=== PATIENT | female | born 1985 | race Caucasian/White ===

== ENCOUNTER → 2017-03-01 | Outpatient (CLI) | payer OTHER ==
--- NOTE | 2017-03-01 11:49 | XR ---
EXAMINATION TYPE: XR chest 2V DATE OF EXAM: 03/01/2017 COMPARISON: 05/15/2016 INDICATION: Pneumonia, cough TECHNIQUE: Frontal and lateral views of the chest are obtained. FINDINGS: The heart size is normal. The pulmonary vasculature is normal. The lungs are clear. IMPRESSION: 1. No acute pulmonary process.
[2017-03-05 13:35] LABS: Alternaria alternata IgE <0.35 kU/L (<0.35); Asperg. fumagatus IgE <0.35 kU/L (<0.35); Asperg. fumagatus IgE Class CLASS 0; Birch(Com.Silvr) IgE Class CLASS 0; Cat Epith & Dander IgE <0.35 kU/L (<0.35); Cat Epith & Dander IgE Class CLASS 0; Clad herbarum IgE <0.35 kU/L (<0.35); Clad herbarum IgE Class CLASS 0; Common Ragweed IgE Class CLASS 0; Dermato. Pteronyssinus Class CLASS 0; Dermato. Pteronyssinus IgE <0.35 kU/L (<0.35); Dermato. farinae IgE <0.35 kU/L (<0.35); Dermato. farinae IgE Class CLASS 0; IgE (Allergen) 2.5 IU/mL (<114.0); Maple (Box Elder) IgE <0.35 kU/L (<0.35); Maple (Box Elder) IgE Class CLASS 0; Mountain Cedar IgE <0.35 kU/L (<0.35); Mountain Cedar IgE Class CLASS 0; Mouse Urine IgE Class CLASS 0; Mouse Urine Proteins,IgE <0.35 kU/L (<0.35); Mulberry IgE Class CLASS 0; Nettle IgE <0.35 kU/L (<0.35); Nettle IgE Class CLASS 0; Oak IgE <0.35 kU/L (<0.35); Penicillium notatum IgE Class CLASS 0; Rough Marshelder IgE <0.35 kU/L (<0.35); Rough Marshelder IgE Class CLASS 0; Timothy Grass IgE <0.35 kU/L (<0.35); Timothy Grass IgE Class CLASS 0; White Ash IgE Class CLASS 0
== END ==
LOC: RADXRMAIN 11:31
PROVIDERS: ATTEND Internal Medicine Sleep Medicine
DX: J44.9 Chronic obstructive pulmonary disease, unspecified (principal); B44.81 Allergic bronchopulmonary aspergillosis
CPT/HCPCS: 36415; 71020; 82785; 86001; 86003; 86606; 86609

== ENCOUNTER 2017-07-05 09:24 | Emergency (ER) | payer OTHER ==
[2017-07-05] MEDS ORDERED: IBUPROFEN 600 MG TAB PO STA (09:52)
--- NOTE | 2017-07-05 09:56 | ED ---
General Adult HPI - General Chief complaint: Upper Respiratory Infection Stated complaint: Fever, nauseated Time Seen by Provider: 07/05/17 09:34 Source: patient, RN notes reviewed Mode of arrival: ambulatory Limitations: no limitations - History of Present Illness Initial comments: 31 yo female presents to the ER with cc of cough cold like symptoms. She states she's been sick since yesterday. She denies a high fever. She states she's had a lot of congestion and drainage. She states that she was concerned because she just is not feeling much better so she thought that she should be evaluated. She denies any vomiting with this. Patient denies any recent shortness of breath, chest pain, back pain, abdominal pain, vomiting, numbness or tingling, dysuria or hematuria, constipation or diarrhea, headaches or visual changes, or any other current symptoms. - Related Data Home Medications Medication Instructions Recorded Confirmed Acetaminophen [Tylenol] 650 mg PO Q6H PRN 07/05/17 07/05/17 Albuterol Inhaler [Ventolin Hfa 1 - 2 puff INHALATION RT-QID PRN 07/05/17 Inhaler] Azithromycin [Zithromax Z-pack] 0 mg PO DIRECTED 07/05/17 07/05/17 Bisoprolol-Hctz 5-6.25 mg [Ziac 1 tab PO DAILY 07/05/17 07/05/17 5-6.25] Montelukast [Singulair] 10 mg PO HS 07/05/17 07/05/17 Allergies Allergy/AdvReac Type Severity Reaction Status Date / Time No Known Allergies Allergy Verified 07/05/17 10:00 Review of Systems ROS Statement: Those systems with pertinent positive or pertinent negative responses have been documented in the HPI. ROS Other: All systems not noted in ROS Statement are negative. Past Medical History Past Medical History: No Reported History, Hypertension, Supraventricular Tachycardia (SVT) Additional Past Medical History / Comment(s): tachycardia, svt History of Any Multi-Drug Resistant Organisms: None Reported Past Surgical History: Section Past Anesthesia/Blood Transfusion Reactions: No Reported Reaction Past Psychological History: No Psychological Hx Reported Smoking Status: Former smoker Past Alcohol Use History: Occasional Past Drug Use History: None Reported - Past Family History Mother Family Medical History: No Reported History General Exam - General Exam Comments Initial Comments: General exam: Alert, active, comfortable in no apparent distress Head: Normocephalic Eyes: Normal reaction of pupils, equal size, normal range of extraocular motion Ears: normal external ear canals, pink tympanic membranes with normal cone of light Nose: clear with pink turbinates Throat: no erythema or exudates with normal sized tonsils Neck: no masses, no nuchal rigidity Chest: no chest wall deformity Lungs: equal air entry with no crackles or wheeze CVS: S1 and S2 normal with no audible mumurs, regular rhythm Abdomen: no hepatosplenomegaly, normal bowel sounds, no guarding or rigidity Spine: no scoliosis or deformity Skin: no rashes Neurological: No focal deficits, tone is normal in all 4 extremities Limitations: no limitations Course Vital Signs 07/05/17 07/05/17 07/05/17 09:28 09:50 10:04 Temperature 97.4 F L 98.8 F Pulse Rate 114 H Respiratory 18 20 Rate Blood Pressure 143/77 O2 Sat by Pulse 100 Oximetry Medical Decision Making - Medical Decision Making 31-year-old female presents to the emergency department with a chief complaint of cough cold like symptoms. At this time the patient is positive for influenza A. At this time we we'll give her prescription for Tamiflu. We discussed Motrin and Tylenol. We discussed return parameters and follow-up and all questions. Patient stated that she understood and she is agreement plan. All cushions have been answered. She'll be discharged. - Lab Data Lab Results 07/05/17 07/05/17 Range/Units 09:55 09:55 Influenza Type A RNA Detected H (Not Detectd) Influenza Type B (PCR) Not Detected (Not Detectd) Group A Strep Rapid Negative (Negative) - Radiology Data Radiology results: report reviewed, image reviewed Disposition Clinical Impression: Influenza A Disposition: HOME SELF-CARE Condition: Stable Instructions: Influenza in Children (ED) Additional Instructions: Please use medication as discussed. Please follow up with family doctor if symptoms have not improved over the next two days. Please return to the emergency room if your symptoms increase or worsen or for any other concerns. Referrals: Tomy Encinas MD [Primary Care Provider] - 1-2 days Time of Disposition: 10:38
[2017-07-05 10:04] VITALS: RESP 20
--- NOTE | 2017-07-05 10:35 | XR ---
EXAMINATION TYPE: XR chest 2V DATE OF EXAM: 07/05/2017 COMPARISON: 06/16/2017 HISTORY: Chest pain TECHNIQUE: Frontal and lateral views of the chest are obtained. FINDINGS: There is no focal air space opacity. No evidence for pneumothorax. No pleural effusion. The cardiac silhouette size is within normal limits. The osseous structures are grossly intact. IMPRESSION: 1. No acute cardiopulmonary process.
[2017-07-05 10:46] VITALS: BP 126/79; PULSE 102; TEMP 98.9
== END 2017-07-05 10:46 | disposition home or self-care (01) ==
LOC: EC 09:24
DX: J10.1 Influenza due to other identified influenza virus with other respiratory manifestations (principal); I10 Essential (primary) hypertension; Z87.891 Personal history of nicotine dependence; Z79.899 Other long term (current) drug therapy
CPT/HCPCS: 71046; 87081; 87430; 87502; 99283

== ENCOUNTER 2017-09-01 14:50 | Emergency (ER) | payer OTHER ==
[2017-09-01] MEDS ORDERED: Acetaminophen-Codeine 300-30mg TAB PO STA (14:59)
--- NOTE | 2017-09-01 15:01 | ED ---
Lower Extremity Injury HPI - General Stated Complaint: left ankle injury Time Seen by Provider: 09/01/17 14:54 Source: patient, RN notes reviewed Mode of arrival: wheelchair Limitations: no limitations - History of Present Illness Initial Comments: 32-year-old female presents emergency Department chief complaint of left ankle injury. Patient states that she was getting off a trampoline states her ankle rolled she felt a snap. Patient has pain in her tib-fib, left ankle region. Patient said no prior fractures. Denies any paresthesias. Patient states that she has not taken any medications prior arrival. - Related Data Home Medications Medication Instructions Recorded Confirmed Bisoprolol-Hctz 5-6.25 mg [Ziac 1 tab PO DAILY 07/05/17 09/01/17 5-6.25] Montelukast [Singulair] 10 mg PO HS 07/05/17 09/01/17 Previous Rx's Medication Instructions Recorded Acetaminophen-Codeine 300-30mg 1 tab PO Q4H PRN #20 tablet 09/01/17 [Tylenol #3] Ibuprofen [Motrin] 600 mg PO Q8HR PRN #30 tab 09/01/17 Allergies Allergy/AdvReac Type Severity Reaction Status Date / Time No Known Allergies Allergy Verified 09/01/17 15:14 Review of Systems ROS Statement: Those systems with pertinent positive or pertinent negative responses have been documented in the HPI. ROS Other: All systems not noted in ROS Statement are negative. Past Medical History Past Medical History: No Reported History, Hypertension, Supraventricular Tachycardia (SVT) Additional Past Medical History / Comment(s): tachycardia, svt History of Any Multi-Drug Resistant Organisms: None Reported Past Surgical History: Section Past Anesthesia/Blood Transfusion Reactions: No Reported Reaction Past Psychological History: No Psychological Hx Reported Smoking Status: Former smoker Past Alcohol Use History: Occasional Past Drug Use History: None Reported - Past Family History Mother Family Medical History: No Reported History General Exam Limitations: no limitations General appearance: alert, in no apparent distress Head exam: Present: atraumatic, normocephalic, normal inspection Respiratory exam: Present: normal lung sounds bilaterally. Absent: respiratory distress, wheezes, rales, rhonchi, stridor Cardiovascular Exam: Present: regular rate, normal rhythm, normal heart sounds. Absent: systolic murmur, diastolic murmur, rubs, gallop, clicks Extremities exam: Present: other (Left ankle there is obvious deformity, swelling noted greatest to lateral malleolus., There is mild tenderness the proximal tib-fib region. Pulses equal bilaterally no discoloration) Neurological exam: Present: reflexes normal. Absent: motor sensory deficit Skin exam: Present: warm, dry, intact, normal color. Absent: rash Course Vital Signs 09/01/17 14:59 Temperature 98.3 F Pulse Rate 107 H Respiratory 18 Rate Blood Pressure 159/112 O2 Sat by Pulse 97 Oximetry - Reevaluation(s) Reevaluation #1: 09/01/17 15:00 Patient was offered oral versus IM pain medication. Patient opted for Tylenol codeine she states that she get sick from other meds. Procedures - Orthopedic Splinting/Casting Injury #1 Side: left Lower Extremity Injury Location: short leg, ankle Lower Extremity Immobilizer: posterior splint, synthetic pre-padded splint Other Orthopedic Equipment: crutches Medical Decision Making - Medical Decision Making 32-year-old female presents for chief complaint left ankle injury. There is no acute fracture dislocation. Patient has a left ankle sprain concern for ligament disruption. Patient was splinted will follow-up with orthopedics and return parameters were discussed. Disposition Clinical Impression: Left ankle sprain Disposition: HOME SELF-CARE Condition: Stable Instructions: Ankle Sprain (ED) Additional Instructions: Please return to the Emergency Department if symptoms worsen or any other concerns. Prescriptions: Acetaminophen-Codeine 300-30mg [Tylenol #3] 1 tab PO Q4H PRN #20 tablet PRN Reason: pain Ibuprofen [Motrin] 600 mg PO Q8HR PRN #30 tab PRN Reason: Pain Referrals: Tomy Encinas MD [Primary Care Provider] - 1-2 days Tayo Groves MD [STAFF PHYSICIAN] - 1-2 days Time of Disposition: 15:35
[2017-09-01 15:03] VITALS: BP 159/112; PULSE 107; RESP 18; TEMP 98.3
--- NOTE | 2017-09-01 15:12 | XR ---
EXAMINATION TYPE: XR ankle complete LT DATE OF EXAM: 09/01/2017 COMPARISON: 08/24/2015 HISTORY: Pain TECHNIQUE: 3 views FINDINGS: There is soft tissue swelling over the lateral malleolus. Ankle mortise is anatomic. I see no fracture. Joint spaces are fairly normal. IMPRESSION: Soft tissue swelling. No fracture seen.
--- NOTE | 2017-09-01 15:14 | XR ---
EXAMINATION TYPE: XR tibia fibula LT DATE OF EXAM: 09/01/2017 COMPARISON: NONE HISTORY: Pain TECHNIQUE: 2 views FINDINGS: I see no fracture nor dislocation. Tibia and fibula appear intact. There is soft tissue swe lling over the distal fibula. IMPRESSION: Soft tissue swelling. No fracture seen.
== END 2017-09-01 15:47 | disposition home or self-care (01) ==
LOC: EC 14:50
DX: S93.402A Sprain of unspecified ligament of left ankle, initial encounter (principal); I10 Essential (primary) hypertension; I47.1 Supraventricular tachycardia; Z87.891 Personal history of nicotine dependence; Z79.899 Other long term (current) drug therapy; X50.9XXA Other and unspecified overexertion or strenuous movements or postures, initial encounter; Y93.44 Activity, trampolining
CPT/HCPCS: 29515; 99283

== ENCOUNTER → 2017-09-17 | Outpatient (CLI) | payer OTHER ==
--- NOTE | 2017-09-17 15:58 | US ---
EXAMINATION TYPE: US venous doppler duplex LE LT DATE OF EXAM: 09/17/2017 3:45 PM COMPARISON: NONE CLINICAL HISTORY: M25.572 PAIN IN LT ANKLE AND JOINT LT FOOT. Left ankle swelling-- Patient fell on a nkle while on trampoline. On aspirin. SIDE PERFORMED: Left TECHNIQUE: The lower extremity deep venous system is examined utilizing real time linear array sonog audrey with graded compression, doppler sonography and color-flow sonography. VESSELS IMAGED: External Iliac Vein (EIV) Common Femoral Vein Deep Femoral Vein Greater Saphenous Vein * Femoral Vein Popliteal Vein Small Saphenous Vein * Proximal Calf Veins (* superficial vessels) Left Leg: Negative for DVT Grayscale, color doppler, spectral doppler imaging performed of the deep veins of the left lower extr emity. There is normal flow, compressibility, vascular waveforms. IMPRESSION: No ultrasound evidence for acute DVT in the left lower extremity.
== END | disposition home or self-care (01) ==
LOC: RADUSWWP 15:03
PROVIDERS: ATTEND Orthopaedic Surgery
DX: S93.402D Sprain of unspecified ligament of left ankle, subsequent encounter (principal)

== ENCOUNTER → 2017-12-12 | Outpatient (CLI) | payer OTHER ==
--- NOTE | 2017-12-12 16:52 | CT ---
EXAMINATION TYPE: CT ankle LT wo con DATE OF EXAM: 12/12/2017 HISTORY: Left sided ankle injury 3 months ago. pain since COMPARISON: NONE CT DLP: 240 mGycm. Automated Exposure Control for Dose Reduction was Utilized. TECHNIQUE: CT scan of the left knee without intravenous contrast is performed. FINDINGS: The ankle mortise is maintained. There is no evidence of acute fracture or malalignment of the left a nkle. Syndesmosis is unremarkable. Very small bone island is present within the cuboid. No suspicious osseous lesions are in normal osseous mineralization. Evaluation of the ligaments and tendons as well as soft tissues are limited on CT, however there does appear to be prominent soft tissue density in the region of the deltoid ligament and slight attenuat ion of the tibialis posterior and flexor digitorum longus. Extensor tendons appear unremarkable. Ther e is a small tibiotalar joint effusion. Evaluation of the anterior talofibular ligament and posterior talofibular ligament are significantly limited on CT. IMPRESSION: 1. No evidence of fracture or malalignment of the left ankle. 2. Although soft tissue components are limited on CT there appears to be prominent soft tissue within the deltoid ligament concerning for underlying tear and attenuation of the tibialis posterior as wel l as flexor digitorum longus tendons suggesting either partial tear and/or tenosynovitis. Further zamzam luation with MRI is recommended. 3. Small tibiotalar joint effusion, nonspecific.
== END ==
LOC: RADCTMAIN 15:31
PROVIDERS: ATTEND Orthopaedic Surgery
DX: S93.402D Sprain of unspecified ligament of left ankle, subsequent encounter (principal); S92.022D Displaced fracture of anterior process of left calcaneus, subsequent encounter for fracture with routine healing; X58.XXXD Exposure to other specified factors, subsequent encounter; M25.472 Effusion, left ankle

== ENCOUNTER 2018-01-05 00:33 | Inpatient (IN) | payer OTHER ==
[2018-01-05 00:48] LABS: Basophils # (A) 0.1 k/uL (0-0.2); Basophils % (A) 1 %; Eosinophils # (A) 0.1 k/uL (0-0.7); Eosinophils % (A) 1 %; HCT 38.6 % (34.0-46.0); HGB 12.5 gm/dL (11.4-16.0); Hypochromasia Slight; Lymphocytes # (A) 2.2 k/uL (1.0-4.8); Lymphocytes % (A) 26 %; MCH 25.9 pg (25.0-35.0); MCHC 32.3 g/dL (31.0-37.0); MCV 80.1 fL (80.0-100.0); Mean Platelet Volume 7.5; Monocytes # (A) 0.5 k/uL (0-1.0); Monocytes % (A) 6 %; Neutrophils # (A) 5.5 k/uL (1.3-7.7); Neutrophils % (A) 65 %; Platelet Count 279 k/uL (150-450); RBC 4.82 m/uL (3.80-5.40); RDW 14.3 % (11.5-15.5); WBC 8.4 k/uL (3.8-10.6)
[2018-01-05 00:55] LABS: Partial Thromboplastin Time 22.7 sec (22.0-30.0); Prothrombin Time 10.1 sec (9.0-12.0)
[2018-01-05 00:56] LABS: Glucose,Whole Blood 102 mg/dL (75-99)
[2018-01-05 00:57] LABS: ALT 26 U/L (9-52); AST 19 U/L (14-36); Albumin 4.4 g/dL (3.5-5.0); Alcohol 109 mg/dL; Alkaline Phosphatase 44 U/L (38-126); Amylase 62 U/L (30-110); Anion Gap 14 mmol/L; Blood Urea Nitrogen 9 mg/dL (7-17); Calcium 8.4 mg/dL (8.4-10.2); Carbon Dioxide 19 mmol/L (22-30); Chloride 109 mmol/L (98-107); Glucose 105 mg/dL (74-99); Lipase 116 U/L (23-300); Potassium 3.7 mmol/L (3.5-5.1); Sodium 142 mmol/L (137-145); Total Bilirubin 0.2 mg/dL (0.2-1.3); Total Protein 6.7 g/dL (6.3-8.2)
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
[2018-01-05 01:05] LABS: Creatine Kinase 93 U/L (30-135)
[2018-01-05 01:14] LABS: Appearance,Urine Clear (Clear); Bilirubin,Urine Negative (Negative); Blood,Urine Negative (Negative); Color,Urine Colorless; Glucose,Urine (UA) Negative (Negative); Ketones,Urine Negative (Negative); Leukocyte Esterase,Urine Negative (Negative); Nitrite,Urine Negative (Negative); PH, Urine 5.5 (5.0-8.0); Protein,Urine Negative (Negative); Specific Gravity,Urine 1.003 (1.001-1.035); Urobilinogen,Urine <2.0 mg/dL (<2.0)
[2018-01-05 01:17] LABS: Creatine Kinase MB 0.6 ng/mL (0.0-2.4); Troponin I <0.012 ng/mL (0.000-0.034)
[2018-01-05 01:24] LABS: Amphetamine Screen,Urine Not Detected (NotDetected); Barbiturate Screen,Urine Not Detected (NotDetected); Benzodiazepines Screen,Urine Not Detected (NotDetected); Cocaine Screen,Urine Not Detected (NotDetected); Methadone Screen, Urine Not Detected (NotDetected); Opiate Screen,Urine Not Detected (NotDetected); Oxycodone Screen, Urine Not Detected (NotDetected); Phencyclidine Screen,Urine Not Detected (NotDetected); Tricyclic Antidepressant,Urine Not Detected (NotDetected); Urn Cannabinoid Scrn Not Detected (NotDetected)
--- NOTE | 2018-01-05 01:59 | XR ---
EXAMINATION TYPE: XR elbow complete LT DATE OF EXAM: 01/05/2018 COMPARISON: NONE HISTORY: Elbow pain TECHNIQUE: 3 views FINDINGS: I see no fracture nor dislocation. Joint spaces are normal. There is no sign of elbow joint effusion. IMPRESSION: Negative left elbow exam.
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
[2018-01-05] MEDS ORDERED: MORPHINE SULFATE 2 MG/ML SYRINGE IVP STA ×2 (02:39→04:23)
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
[2018-01-05] MEDS ORDERED: ceFAZolin IN SWFI 2 GM/20 ML SYRINGE IVP STA (03:24)
[2018-01-05] MEDS ORDERED: TETANUS-DIPHTHERIA TOX (PF) 0.5 ML VIAL IM ONE (03:25)
[2018-01-05] MEDS ORDERED: SODIUM CHLORIDE 0.9% 1,000 ML IV ONE ×3 (04:23→13:47)
[2018-01-05] MEDS ORDERED: MORPHINE SULFATE 2 MG/ML SYRINGE IVP PRN (04:23)
[2018-01-05] MEDS ORDERED: ONDANSETRON 4 MG/2 ML VIAL IVP STA (04:28)
[2018-01-05] MEDS ORDERED: LORazepam 2 MG/ML INJ IV STA (04:48)
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
[2018-01-05] MEDS: LORazepam 2 MG/ML INJ IV PRN ×2 (09:57→17:13)
[2018-01-05] MEDS ORDERED: ceFAZolin 2 GM in SODIUM CHLORIDE 0.9% 100 ML IVPB ONE (10:58)
[2018-01-05] MEDS ORDERED: ceFAZolin IN SWFI 2 GM/20 ML SYRINGE IVP ONE (11:15)
[2018-01-05] MEDS ORDERED: LACTATED RINGERS 1,000 ML IV ONE ×2 (11:48)
[2018-01-05] MEDS ORDERED: ceFAZolin 1,000 MG in DEXTROSE/WATER 1 50ML.BAG IVPB SCH (12:00)
[2018-01-05] MEDS ORDERED: fentaNYL (PF) 50 MCG/ML 2 ML AMP ONE (12:41)
[2018-01-05] MEDS ORDERED: LIDOCAINE 1% INJ 10MG/ML (20 ML MDV) ONE (12:41)
[2018-01-05] MEDS ORDERED: PROPOFOL 10 MG/ML 20 ML VIAL IV ONE (12:41)
[2018-01-05] MEDS ORDERED: MIDAZOLAM 2 MG/2 ML VIAL ONE (12:41)
[2018-01-05] MEDS ORDERED: SODIUM CHLORIDE 0.9% 50 ML with ceFAZolin 2,000 MG IV ONE ×2 (12:50)
[2018-01-05] MEDS ORDERED: ceFAZolin 3,000 MG in SODIUM CHLORIDE 0.9% IRRIGATIO 3,000 ML IRRIGATION ONE (13:08)
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
[2018-01-05] MEDS ORDERED: HYDROcodone/APAP 5-325MG 1 EACH TAB PO PRN (14:03)
[2018-01-05] MEDS ORDERED: diphenhydrAMINE 25 MG CAP PO PRN (14:03)
[2018-01-05] MEDS ORDERED: MORPHINE SULFATE 2 MG/ML SYRINGE IV PRN ×3 (14:03)
[2018-01-05] MEDS ORDERED: SENNOSIDES-DOCUSATE SODIUM 1 EACH TAB PO PRN (14:03)
[2018-01-05] MEDS: MORPHINE SULFATE 2 MG/ML SYRINGE IV PRN (15:34)
[2018-01-05] MEDS ORDERED: ceFAZolin IN SWFI 2 GM/20 ML SYRINGE IVP SCH (16:00)
[2018-01-05] MEDS: ONDANSETRON 4 MG/2 ML VIAL IVP PRN ×2 (16:20→22:41)
[2018-01-05] MEDS: ceFAZolin IN SWFI 2 GM/20 ML SYRINGE IVP SCH ×2 (16:43→22:36)
[2018-01-05] MEDS: HYDROcodone/APAP 5-325MG 1 EACH TAB PO PRN (22:29)
[2018-01-06] MEDS: MORPHINE SULFATE 2 MG/ML SYRINGE IV PRN ×2 (02:32→05:38)
[2018-01-06] MEDS: HYDROcodone/APAP 5-325MG 1 EACH TAB PO PRN ×3 (05:38→22:07)
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
[2018-01-06] MEDS: ONDANSETRON 4 MG/2 ML VIAL IVP PRN ×2 (09:27→20:38)
[2018-01-06] MEDS ORDERED: IV FLUID CONTINUATION 1,000 ML IV ONE (13:48)
[2018-01-06] MEDS ORDERED: ONDANSETRON 4 MG/2 ML VIAL IVP ONE (14:33)
[2018-01-06] MEDS ORDERED: DEXAMETHASONE SOD PHOS (MDV) 100 MG/10 ML VIAL IVP ONE (14:33)
[2018-01-06] MEDS ORDERED: LACTATED RINGERS 1,000 ML IV ONE ×2 (15:36)
[2018-01-06] MEDS ORDERED: LIDOCAINE 1% INJ 10MG/ML (20 ML MDV) ONE (15:36)
[2018-01-06] MEDS ORDERED: MIDAZOLAM 2 MG/2 ML VIAL ONE (15:36)
[2018-01-06] MEDS ORDERED: SODIUM CHLORIDE 0.9% 50 ML with ceFAZolin 2,000 MG IV ONE ×2 (15:36)
[2018-01-06] MEDS ORDERED: fentaNYL (PF) 50 MCG/ML 2 ML AMP ONE (15:36)
[2018-01-06] MEDS ORDERED: PROPOFOL 10 MG/ML 20 ML VIAL IV ONE (15:36)
[2018-01-06] MEDS ORDERED: BACITRACIN 500 UNIT/GM OINT 28.4 GM TUBE TOPICAL ONE (16:03)
[2018-01-06] MEDS ORDERED: SENNOSIDES-DOCUSATE SODIUM 1 EACH TAB PO PRN (16:07)
[2018-01-06] MEDS ORDERED: HYDROmorphone 0.5 MG/0.5 ML SYRINGE IVP PRN (16:07)
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
[2018-01-06] MEDS: HYDROmorphone 1 MG/ML 1 ML SYRINGE IVP ONE ×2 (16:38→16:47)
[2018-01-06] MEDS: ceFAZolin IN SWFI 2 GM/20 ML SYRINGE IVP SCH (23:06)
[2018-01-06] MEDS ORDERED: ONDANSETRON 4 MG/2 ML VIAL IVP STA (23:47)
[2018-01-07] MEDS: ONDANSETRON 4 MG/2 ML VIAL IVP PRN ×3 (05:42→16:43)
[2018-01-07] MEDS: ceFAZolin IN SWFI 2 GM/20 ML SYRINGE IVP SCH (08:14)
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
[2018-01-07] MEDS: HYDROcodone/APAP 5-325MG 1 EACH TAB PO PRN ×2 (10:41→19:17)
[2018-01-07] MEDS: HYDROmorphone 0.5 MG/0.5 ML SYRINGE IVP PRN (13:44)
[2018-01-07] MEDS: METOCLOPRAMIDE 5 MG/ML 2 ML VIAL IVP PRN ×2 (13:44→19:17)
[2018-01-07] MEDS: AMPICILLIN-SULBACTAM 3 GM in SODIUM CHLORIDE 0.9% 100 ML IVPB SCH (19:16)
[2018-01-07] MEDS: LORazepam 2 MG/ML INJ IV PRN (19:32)
[2018-01-08] MEDS ORDERED: HYDROcodone/APAP 5-325MG 1 EACH TAB ONE (02:20)
[2018-01-08] MEDS ORDERED: METOCLOPRAMIDE 5 MG/ML 2 ML VIAL ONE (02:20)
[2018-01-08] MEDS ORDERED: ONDANSETRON 4 MG/2 ML VIAL ONE (03:43)
[2018-01-08] MEDS: AMPICILLIN-SULBACTAM 3 GM in SODIUM CHLORIDE 0.9% 100 ML IVPB SCH ×5 (04:55→23:53)
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
[2018-01-08] MEDS: HYDROcodone/APAP 5-325MG 1 EACH TAB PO PRN (08:27)
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
[2018-01-08] MEDS: ONDANSETRON 4 MG/2 ML VIAL IVP PRN (12:16)
[2018-01-08] MEDS: HYDROmorphone 0.5 MG/0.5 ML SYRINGE IVP PRN ×2 (14:54→23:54)
[2018-01-08] MEDS ORDERED: Acetaminophen-Codeine 300-30mg TAB PO PRN (15:12)
[2018-01-08] MEDS: MELOXICAM 7.5 MG TAB PO SCH (16:02)
[2018-01-08] MEDS: Acetaminophen-Codeine 300-30mg TAB PO PRN (20:00)
[2018-01-08 20:04] VITALS: RESP 14; TEMP 98.7
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
[2018-01-09 02:06] VITALS: BP 117/76; PULSE 85
[2018-01-09] MEDS: AMPICILLIN-SULBACTAM 3 GM in SODIUM CHLORIDE 0.9% 100 ML IVPB SCH ×2 (05:58→12:11)
[2018-01-09] MEDS: MELOXICAM 7.5 MG TAB PO SCH (08:51)
[2018-01-09] MEDS: Acetaminophen-Codeine 300-30mg TAB PO PRN (08:56)
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
[2018-01-09 11:39] LABS: Basophils % (A) 1 %; Eosinophils % (A) 1 %; HCT 33.6 % (34.0-46.0); HGB 10.7 gm/dL (11.4-16.0); Hypochromasia Slight; Lymphocytes % (A) 18 %; MCH 25.6 pg (25.0-35.0); MCHC 31.9 g/dL (31.0-37.0); MCV 80.3 fL (80.0-100.0); Mean Platelet Volume 7.1; Monocytes # (A) 0.3 k/uL (0-1.0); Monocytes % (A) 6 %; Neutrophils # (A) 3.9 k/uL (1.3-7.7); Neutrophils % (A) 73 %; Platelet Count 290 k/uL (150-450); RBC 4.19 m/uL (3.80-5.40); RDW 14.6 % (11.5-15.5); WBC 5.4 k/uL (3.8-10.6)
[2018-01-09] MEDS: HYDROmorphone 0.5 MG/0.5 ML SYRINGE IVP PRN (12:25)
[2018-01-09] MEDS: ONDANSETRON 4 MG/2 ML VIAL IVP PRN (12:28)
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
== END 2018-01-09 15:07 | disposition home or self-care (01) | DRG 902 ==
LOC: EC 00:33 → 3SUR 04:23 → OBSVTOIN 11:14
PROVIDERS: ADMIT Orthopaedic Surgery; ATTEND Orthopaedic Surgery
PROC: 0JDQ0ZZ Extraction of Right Foot Subcutaneous Tissue and Fascia, Open Approach (ICD-10-PCS; 2018-01-05)
PROC: 0JBQ0ZZ Excision of Right Foot Subcutaneous Tissue and Fascia, Open Approach (ICD-10-PCS; principal; 2018-01-05 13:00)
DX: S91.021A Laceration with foreign body, right ankle, initial encounter (principal); L03.115 Cellulitis of right lower limb; S91.321A Laceration with foreign body, right foot, initial encounter; V49.3XXA Car occupant (driver) (passenger) injured in unspecified nontraffic accident, initial encounter; Y92.89 Other specified places as the place of occurrence of the external cause; I10 Essential (primary) hypertension; S80.211A Abrasion, right knee, initial encounter; Z79.899 Other long term (current) drug therapy; Z82.5 Family history of asthma and other chronic lower respiratory diseases; Z87.891 Personal history of nicotine dependence; R07.1 Chest pain on breathing; M54.6 Pain in thoracic spine; R11.2 Nausea with vomiting, unspecified; R07.81 Pleurodynia
CPT/HCPCS: 36415; 70450; 71260; 72125; 74177; 80053; 80306; 80320; 81003; 81025; 82150; 82550; 82553; 83605; 83690; 84484; 85025; 85610; 85730; 86850; 86900; 86901; 87086; 90471; 90714; 93005; 96374; 96375; 96376; 99285

== ENCOUNTER → 2018-03-31 | Outpatient (CLI) | payer OTHER ==
--- NOTE | 2018-03-31 13:04 | MR ---
EXAMINATION TYPE: MR knee RT wo con DATE OF EXAM: 03/31/2018 COMPARISON: Outside x-ray dated 03/06/2018, MRI 12/30/2015 HISTORY: Pain in right knee TECHNIQUE: Multiplanar, multisequence imaging of the right knee is performed without IV contrast. FINDINGS: There is large areas of marrow edema involving the medial femoral condyle, head of the fibu la, and proximal aspect of the lateral tibia. Marrow edema within the medial margin of the patella al so noted. Patellar cartilage maintained. Retinaculum intact. Patellar and quadriceps tendons intact. Anterior cruciate and posterior cruciate ligaments intact. Medial collateral and lateral collateral l igaments intact. No diagnostic evidence of meniscal tear. No joint effusion. No erosive changes. No evidence of a popliteal fossa cyst. IMPRESSION: 1. Ligamentous or meniscal tear. However there are sizable areas of marrow edema involving the patell a, head of the fibula, lateral proximal tibia, and medial femoral condyle correlate for bone contusio n or edema. Correlate for recent history of trauma. On the T1 images there is a question of a nondisp laced macrotrabecular fracture involving the head of the fibula, medial femoral condyle and along the metaphysis of the lateral margin of the tibia.
== END | disposition home or self-care (01) ==
LOC: RADMRIMAIN 12:05
PROVIDERS: ATTEND Orthopaedic Surgery
DX: S83.206A Unspecified tear of unspecified meniscus, current injury, right knee, initial encounter (principal); M89.8X6 Other specified disorders of bone, lower leg

== ENCOUNTER → 2018-04-28 | Outpatient (CLI) | payer OTHER ==
--- NOTE | 2018-04-28 11:38 | MR ---
EXAMINATION TYPE: MR shoulder RT wo con DATE OF EXAM: 04/28/2018 COMPARISON: X-ray dated 03/06/2018 HISTORY: Pain in right shoulder TECHNIQUE: Multiplanar, multisequence imaging of the right shoulder is performed without contrast. FINDINGS: Rotator Cuff: There is increased intrasubstance signal in the anterior fibers of the supraspinatus te ndon compatible tendinosis. No diagnostic evidence of through thickness tear or retraction. Acromioclavicular Joint: No evidence of impingement. AC joint distance maintained. Glenohumeral Joint: Joint space preserved. No joint effusion. Glenohumeral ligaments appear intact. Labrum: Truncation of the anterior superior labrum. There appears to be extension of abnormal signal posteriorly. Correlate for SLAP tear. Biceps Tendon: The long head of biceps is in normal location within bicipital groove. Bone marrow signal: No focal abnormal marrow signal is appreciated. Other: No additional significant abnormality is appreciated. IMPRESSION: 1. Correlate for SLAP tear 2. Supraspinatus mild tendinosis with no evidence of tear.
== END | disposition home or self-care (01) ==
LOC: RADMRIMAIN 10:45
PROVIDERS: ATTEND Orthopaedic Surgery
DX: M67.813 Other specified disorders of tendon, right shoulder (principal)

== ENCOUNTER 2020-10-17 10:59 | Emergency (ER) | payer MEDICAID, OTHER ==
[2020-10-17 11:28] VITALS: BP 131/89; PULSE 116
[2020-10-17] MEDS ORDERED: IBUPROFEN 600 MG TAB PO STA (11:56)
[2020-10-17] MEDS ORDERED: ACETAMINOPHEN TAB 500 MG TAB PO STA (11:56)
[2020-10-17] MEDS ORDERED: ONDANSETRON ODT 4 MG TAB PO STA (12:03)
--- NOTE | 2020-10-17 12:05 | ED ---
General Adult HPI - General Chief complaint: Shortness of Breath Stated complaint: Covid+, SOB Time Seen by Provider: 10/17/20 11:34 Source: patient, RN notes reviewed Mode of arrival: ambulatory Limitations: no limitations - History of Present Illness Initial comments: 35-year-old female with a past medical history of hypertension, tachycardia, SVT presents to the emergency room for a chief complaint of shortness of breath. Patient states that she tested positive for coronavirus about 1 week ago. Patient states she thought she was getting better however today she woke up and felt like her chest is tighter and she was more short of breath. States she has sharp anterior chest pain that worsens when she coughs. Denies any pain when she takes a deep breath.Patient has no other complaints at this time including abdominal pain, nausea or vomiting, headache, or visual changes. - Related Data Home Medications Medication Instructions Recorded Confirmed Albuterol Sulfate [Proair 2 puff INHALATION RT-Q4H PRN 10/17/20 10/17/20 Respiclick] Lisinopril [Prinivil] 10 mg PO DAILY 10/17/20 10/17/20 Allergies Allergy/AdvReac Type Severity Reaction Status Date / Time No Known Allergies Allergy Verified 10/17/20 13:03 Review of Systems ROS Statement: Those systems with pertinent positive or pertinent negative responses have been documented in the HPI. ROS Other: All systems not noted in ROS Statement are negative. Past Medical History Past Medical History: Hypertension, Supraventricular Tachycardia (SVT) Additional Past Medical History / Comment(s): tachycardia, svt History of Any Multi-Drug Resistant Organisms: None Reported Past Surgical History: Section Additional Past Surgical History / Comment(s): Debridement of right ankle and foot wounds Past Anesthesia/Blood Transfusion Reactions: No Reported Reaction Past Psychological History: No Psychological Hx Reported Smoking Status: Never smoker Past Alcohol Use History: Occasional Past Drug Use History: None Reported - Past Family History Father History Unknown: Yes Mother Family Medical History: COPD, Rheumatoid Arthritis (RA) General Exam Limitations: no limitations General appearance: alert Head exam: Present: atraumatic, normocephalic, normal inspection Eye exam: Present: normal appearance, PERRL, EOMI. Absent: scleral icterus, conjunctival injection, periorbital swelling ENT exam: Present: normal exam, mucous membranes moist Neck exam: Present: normal inspection, full ROM. Absent: tenderness, meni ngismus, lymphadenopathy Respiratory exam: Present: normal lung sounds bilaterally. Absent: respiratory distress, wheezes, rales, rhonchi, stridor Cardiovascular Exam: Present: regular rate, normal rhythm, normal heart sounds. Absent: systolic murmur, diastolic murmur, rubs, gallop, clicks GI/Abdominal exam: Present: soft, normal bowel sounds. Absent: distended, tenderness Course Vital Signs 10/17/20 10/17/20 11:25 12:45 Temperature 98.9 F 100.4 F H Pulse Rate 116 H Respiratory 18 16 Rate Blood Pressure 131/89 O2 Sat by Pulse 96 Oximetry EKG Findings - EKG Comments: EKG Findings:: Sinus tachycardia, ventricular rate 107, VA interval 138, QTC 405 Medical Decision Making - Medical Decision Making Vitals are stable. Patient's temperature 100.4 upon arrival which is likely the cause of her tachycardia. She was given Motrin and Tylenol. Physical exam is unremarkable. EKG is nonischemic. X-ray shows early subtle interstitial infiltrates bilaterally. Patient at significant improvement in symptoms for Motrin or Tylenol. At this time suspect pain is related to inflammation/pneumonia given her pain worsens when she does cough. No pain on inspiration. At this time patient can be discharged home to follow-up with primary care. She should return here for any worsening symptoms such as worsening chest pain or shortness of breath Disposition Clinical Impression: Pneumonia due to COVID-19 virus, Atypical chest pain Disposition: HOME SELF-CARE Condition: Good Instructions (If sedation given, give patient instructions): Coronavirus Disease 2019 (COVID-19) Additional Instructions: Continue Motrin and Tylenol for pain and fever. Take Tessalon Perles and Mucinex as needed. Follow-up with primary care. If you have worsening symptoms return to the emergency room. Is patient prescribed a controlled substance at d/c from ED?: No Referrals: Chava Lyle MD [STAFF PHYSICIAN] - 1-2 days Time of Disposition: 13:35
--- NOTE | 2020-10-17 12:35 | XR ---
EXAMINATION TYPE: XR chest 1V portable DATE OF EXAM: 10/17/2020 Comparison: 07/05/2017 Clinical History: 35-year-old female cough Findings: Heart normal size. Pulmonary vasculature within normal limits. Mild patchy interstitial densities in the periphery of the lungs. No pleural effusion. Impression: Suspect subtle early peripheral interstitial infiltrates bilaterally.
[2020-10-17 12:45] VITALS: TEMP 100.4
[2020-10-17 12:46] VITALS: RESP 16
== END 2020-10-17 13:56 | disposition home or self-care (01) ==
LOC: EC 10:59
DX: U07.1 COVID-19 (principal); J12.82 Pneumonia due to coronavirus disease 2019; I10 Essential (primary) hypertension
CPT/HCPCS: 71045; 93005; 99285

== ENCOUNTER → 2020-11-04 | Outpatient (CLI) | payer MEDICAID, OTHER ==
[2020-11-04 16:06] LABS: Basophils # (A) 0.04 X 10*3/uL (0.00-0.10); Basophils % (A) 0.6 %; Eosinophils # (A) 0.06 X 10*3/uL (0.04-0.35); Eosinophils % (A) 0.9 %; HCT 40.8 % (37.2-46.3); HGB 12.8 g/dL (12.0-15.0); Lymphocytes # (A) 1.71 X 10*3/uL (0.90-5.00); Lymphocytes % (A) 25.1 %; MCH 27.1 pg (27.0-32.0); MCHC 31.4 g/dL (32.0-37.0); MCV 86.4 fL (80.0-97.0); Mean Platelet Volume 11.6 fL (9.5-12.2); Monocytes # (A) 0.57 X 10*3/uL (0.20-1.00); Monocytes % (A) 8.4 %; Neutrophils # (A) 4.42 X 10*3/uL (1.80-7.70); Neutrophils % (A) 64.9 %; Platelet Count 274 X 10*3/uL (140-440); RBC 4.72 X 10*6/uL (4.10-5.20); RDW 15.1 % (11.5-14.5); WBC 6.81 X 10*3/uL (4.50-10.00)
[2020-11-04 21:31] LABS: African American GFR (CKD) 109.9 (60.0-200.0); Albumin 4.7 g/dL (3.80-4.90); Albumin/Globulin Ratio 2.47 (1.60-3.17); Anion Gap 8.8 mmol/L (4.00-12.00); BUN/Creat Ratio 11.25 Ratio (12.00-20.00); Calcium 9.3 mg/dL (8.7-10.3); Carbon Dioxide 23.2 mmol/L (21.6-31.8); Chol/HDL Ratio 3.52; Globulin 1.9 g/dL (1.6-3.3); LDL Cholesterol,Calculated 125.4 mg/dL (0.0-131.0); Non-African American GFR(CKD) 94.8 (60.0-200.0); Potassium 4.5 mmol/L (3.5-5.5); Total Bilirubin 0.6 mg/dL (0.2-1.2); Total Protein 6.6 g/dL (6.2-8.2); VLDL Calculation 28.6 mg/dL (5.00-40.00)
== END | disposition home or self-care (01) ==
LOC: LABWHC1 09:07
PROVIDERS: ATTEND Family Medicine
DX: Z00.00 Encounter for general adult medical examination without abnormal findings (principal); I10 Essential (primary) hypertension
CPT/HCPCS: 36415; 80053; 80061; 82306; 85025

== ENCOUNTER 2021-06-16 15:51 | Emergency (ER) | payer MEDICAID, OTHER ==
[2021-06-16 19:08] VITALS: BP 182/134; PULSE 98; RESP 16; TEMP 98.1
--- NOTE | 2021-06-16 20:06 | XR ---
EXAMINATION TYPE: XR knee complete LT DATE OF EXAM: 06/16/2021 7:20 PM INDICATION: Patient age:Female; 35 years old; Reason for study: pain; PHH. COMPARISON: None TECHNIQUE: The left knee was examined in 3 projections. FINDINGS: No evidence of any acute osseous pathology, joint space narrowing, soft tissue swelling, or joint effusion is noted. IMPRESSION: No acute osseous pathology.
--- NOTE | 2021-06-16 21:01 | ED ---
General Adult HPI - General Chief complaint: Extremity Injury, Lower Stated complaint: IHS-Lt Knee Injury Time Seen by Provider: 06/16/21 20:42 Source: patient Mode of arrival: ambulatory Limitations: no limitations - History of Present Illness Initial comments: 35 year old female presents to the emergency room for left knee pain. Patient was sent by her employer. Patient states she was coming out of the cafeteria and slept and felt the pain in her left knee. Patient's employer wanted her to be evaluated. Patient states the pain is much improved and she is able to ambulate on the left knee without difficulty. Denies any swelling of the left knee or difficulty bending the knee.Patient has no other complaints at this time including shortness of breath, chest pain, abdominal pain, nausea or vomiting, headache, or visual changes. - Related Data Home Medications Medication Instructions Recorded Confirmed Albuterol Sulfate [Proair 2 puff INHALATION RT-Q4H PRN 10/17/20 10/17/20 Respiclick] Lisinopril [Prinivil] 10 mg PO DAILY 10/17/20 10/17/20 Previous Rx's Medication Instructions Recorded Benzonatate [Tessalon Perles] 200 mg PO Q8H PRN #15 capsule 10/17/20 guaiFENesin [Mucinex] 600 mg PO Q12HR PRN #20 tablet.er 10/17/20 Allergies Allergy/AdvReac Type Severity Reaction Status Date / Time No Known Allergies Allergy Verified 06/16/21 19:08 Review of Systems ROS Statement: Those systems with pertinent positive or pertinent negative responses have been documented in the HPI. ROS Other: All systems not noted in ROS Statement are negative. Past Medical History Past Medical History: Hypertension, Supraventricular Tachycardia (SVT) Additional Past Medical History / Comment(s): tachycardia, svt History of Any Multi-Drug Resistant Organisms: None Reported Past Surgical History: Section Additional Past Surgical History / Comment(s): Debridement of right ankle and foot wounds Past Anesthesia/Blood Transfusion Reactions: No Reported Reaction Past Psychological History: No Psychological Hx Reported Smoking Status: Never smoker Past Alcohol Use History: Occasional Past Drug Use History: None Reported - Past Family History Father History Unknown: Yes Mother Family Medical History: COPD, Rheumatoid Arthritis (RA) General Exam Limitations: no limitations General appearance: alert, in no apparent distress Head exam: Present: atraumatic Eye exam: Present: normal appearance, PERRL, EOMI. Absent: scleral icterus, conjunctival injection ENT exam: Present: normal exam, mucous membranes moist Neck exam: Present: normal inspection, full ROM. Absent: tenderness Respiratory exam: Present: normal lung sounds bilaterally. Absent: respiratory distress, wheezes Cardiovascular Exam: Present: regular rate, normal rhythm, normal heart sounds Extremities exam: Present: full ROM (Full range of motion of the left knee.), normal capillary refill (Left lower extremity). Absent: tenderness (No tenderness noted of the left knee.), joint swelling (No edema of the left knee.), calf tenderness Course Vital Signs 06/16/21 19:06 Temperature 98.1 F Pulse Rate 98 Respiratory 16 Rate Blood Pressure 182/134 O2 Sat by Pulse 99 Oximetry Medical Decision Making - Medical Decision Making I was asked to see patient in the [facility] room as there were no rooms available and patient had been here for several hours. pt is hypertensive. We unfortunately do not have a repeat blood pressure recorded however patient did take her blood pressure medication while here as she didn't take it earlier when she was supposed to. She was not having any symptoms of hypertension. States she was just worked up initially. I did call her at home to remind her follow-up with her doctor for this. As for her knee x-ray is unremarkable. Patient is ambulating on the knee. Patient can be discharged home to follow up with primary care. Will return here for any worsening symptoms. She is requesting no restrictions at work. Disposition Clinical Impression: Knee pain Disposition: HOME SELF-CARE Condition: Good Instructions (If sedation given, give patient instructions): Knee Sprain (ED) Additional Instructions: Please take Motrin and Tylenol for pain. Rest ice and elevate the knee. Follow-up with orthopedics as needed. Return to the emergency room for any worsening symptoms. Is patient prescribed a controlled substance at d/c from ED?: No Referrals: Tabitha Michele DO [Doctor of Osteopathic Medicine] - 1-2 days Time of Disposition: 21:00
== END 2021-06-16 21:11 | disposition home or self-care (01) ==
LOC: EC 15:51
DX: M25.562 Pain in left knee (principal); I10 Essential (primary) hypertension
CPT/HCPCS: 99283

== ENCOUNTER → 2022-11-16 | Outpatient (CLI) | payer OTHER ==
--- NOTE | 2022-11-16 07:31 | MM ---
Reason for Exam: Clinical finding. Baseline mammogram. Indicated Problems: Lump or thickening of the right side for 21 Month(s). Patient History: Menarche at age 12. First Full-Term at age 24. Premenopausal. Patient has history of breast feeding. Last menstrual period: 11/12/2022 Risk Values: Cyndee 5 year model risk: 0.5%. NCI Lifetime model risk: 11.2%. Prior Study Comparison: Patient's first Mammogram. Tissue Density: There are scattered fibroglandular densities. Findings: Analyzed By CAD. Benign-appearing bilateral axillary lymph nodes including suspected low lying left-sided lymph node. No suspicious group of microcalcification bilaterally. Overall Assessment: Incomplete: need additional imaging evaluation, BI-RAD 0 Management: Diagnostic Breast Ultrasound of the right breast. Targeted ultrasound right breast due to patient's symptoms. Patient should continue monthly self-breast exams. A clinical breast exam by your physician is recommended on an annual basis. This exam should not preclude additional follow-up of suspicious palpable abnormalities. Note on Cyndee scores and lifetime risk: 1. A Cyndee score greater than 3% is considered moderate risk. If this is the case, consider specialist referral to assess eligibility for a risk reducing agent. 2. If overall lifetime risk for the development of breast cancer is 20% or higher, the patient may qualify for future screening with alternating mammogram and breast MRI. Electronically signed and approved by: Errol March M.D.
--- NOTE | 2022-11-16 07:55 | USB ---
Reason for Exam: Clinical finding. Patient History: Menarche at age 12. First Full-Term at age 24. Premenopausal. Patient has history of breast feeding. Risk Values: Cyndee 5 year model risk: 0.5%. NCI Lifetime model risk: 11.2%. Technique: Method: Targeted. Findings: The upper outer quadrant of the right breast and the axilla of the right breast were scanned. Targeted ultrasound shows no concerning solid or cystic mass or abnormal fluid collection. Overall Assessment: Negative, BI-RAD 1 Management: Screening Mammogram of both breasts at age 39. Managed clinically patient's symptoms of focal pain. This exam should not preclude additional follow-up of suspicious palpable abnormalities. Results were given to the patient verbally at the time of exam. Electronically signed and approved by: Errol March M.D.
== END | disposition home or self-care (01) ==
LOC: RADMAMWWP 06:47
PROVIDERS: ATTEND Family Medicine
DX: M79.621 Pain in right upper arm (principal); N64.4 Mastodynia
CPT/HCPCS: 77066; 76642; G0279; 77062

== ENCOUNTER 2023-09-30 08:52 | Emergency (ER) | payer BC, OTHER ==
[2023-09-30 09:07] VITALS: RESP 18; TEMP 98.2
--- NOTE | 2023-09-30 09:27 | ED ---
General Adult HPI - General Chief complaint: Chest Pain Stated complaint: Abdominal Pain Time Seen by Provider: 09/30/23 09:00 Source: patient, RN notes reviewed, old records reviewed Mode of arrival: ambulatory Limitations: no limitations - History of Present Illness Initial comments: This is a 38-year-old female who presents to the emergency department denying any previous cardiac history aside from a leaky valve. Patient comes in today because she states she is been treated for bronchitis and been coughing recently. Patient states she now has some pain right under her sternum and it goes along both the right and left side just below the ribs. Patient states it hurts more when she coughs or takes a deep breath. Patient denies being short o f breath in any way. Patient Nuys any fever. Patient states she believes her cough is lessening. Patient denies any swelling to the legs or calf tenderness. Patient denies any radiation of the pain aside from going bilateral just beneath the ribs. Patient states that is reproducible. - Related Data Home Medications Medication Instructions Recorded Confirmed Albuterol Inhaler [Ventolin Hfa 2 puff INHALATION RT-Q4H PRN 09/30/23 09/30/23 Inhaler] Clarithromycin [Biaxin] 500 mg PO Q12H 09/30/23 09/30/23 Previous Rx's Medication Instructions Recorded lisinopriL [Prinivil] 10 mg PO DAILY #30 tab 08/12/21 Ibuprofen [Motrin] 600 mg PO Q6HR PRN #20 tab 09/30/23 Allergies Allergy/AdvReac Type Severity Reaction Status Date / Time No Known Allergies Allergy Verified 09/30/23 10:13 Review of Systems ROS Statement: Those systems with pertinent positive or pertinent negative responses have been documented in the HPI. ROS Other: All systems not noted in ROS Statement are negative. Past Medical History Past Medical History: Hypertension, Supraventricular Tachycardia (SVT) Additional Past Medical History / Comment(s): tachycardia, svt History of Any Multi-Drug Resistant Organisms: None Reported Past Surgical History: Section Additional Past Surgical History / Comment(s): Debridement of right ankle and foot wounds Past Anesthesia/Blood Transfusion Reactions: No Reported Reaction Past Psychological History: No Psychological Hx Reported Smoking Status: Never smoker Past Alcohol Use History: Occasional Past Drug Use History: None Reported - Past Family History Father History Unknown: Yes Mother Family Medical History: COPD, Rheumatoid Arthritis (RA) General Exam - General Exam Comments Initial Comments: GENERAL: Patient is well-developed and well-nourished. Patient is nontoxic and well- hydrated and is in mild distress. ENT: Neck is soft and supple. No significant lymphadenopathy is noted. Oropharynx is clear. Moist mucous membranes. Neck has full range of motion without eliciting any pain. EYES: The sclera were anicteric and conjunctiva were pink and moist. Extraocular movements were intact and pupils were equal round and reactive to light. Eyelids were unremarkable. PULMONARY: Unlabored respirations. Good breath sounds bilaterally. No audible rales rhonchi or wheezing was noted. CARDIOVASCULAR: There is a regular rate and rhythm without any murmurs gallops or rubs. ABDOMEN: Patient has tenderness just beneath the sternum as well as along the ribs bilaterally. It is completely reproducible on palpation SKIN: Skin is clear with no lesions or rashes and otherwise unremarkable. NEUROLOGIC: Patient is alert and oriented x3. Cranial nerves II through XII are grossly intact. Motor and sensory are also intact. Normal speech, volume and content. Symmetrical smile. MUSCULOSKELETAL: Normal extremities with adequate strength and full range of motion. LYMPHATICS: No significant lymphadenopathy is noted PSYCHIATRIC: Normal psychiatric evaluation. Limitations: no limitations Course Vital Signs 09/30/23 09/30/23 08:57 11:08 Temperature 98.2 F Pulse Rate 102 H 98 Respiratory 18 18 Rate Blood Pressure 147/95 139/93 O2 Sat by Pulse 100 Oximetry Medical Decision Making - Medical Decision Making EKG is interpreted by myself. EKG shows a sinus rhythm at 99 bpm parables 134 QRS is 86 QT interval is 306 QTc is 362. Patient's EKG shows some inverted T waves in 3 and aVF which were seen on previous EKG. Patient has no ST segment ovation. Was pt. sent in by a medical professional or institution (, PA, MARINE SPECIALIST, urgent care, hospital, or penitentiary...) When possible be specific @ -No Did you speak to anyone other than the patient for history (EMS, parent, family, police, friend...)? What history was obtained from this source @ -No Did you review nursing and triage notes (agree or disagree)? Why? @ -I reviewed and agree with nursing and triage notes Were old charts reviewed (outside hosp., previous admission, EMS record, old EKG, old radiological studies, urgent care reports/EKG's, penitentiary records)? Report findings @ -I reviewed prior charts and this patient Differential Diagnosis (chest pain, altered mental status, abdominal pain women, abdominal pain men, vaginal bleeding, weakness, fever, dyspnea, syncope, headache, dizziness, GI bleed, back pain, seizure, CVA, palpatations, mental health, musculoskeletal)? @ -Differential Chest Pain: Stable Angina, Unstable Angina, STEMI, NSTEMI Aortic Dissection, Pneumothorax, Musculoskeletal, Esophageal Spasm GERD, Cholecystitis, Pancreatitis, Zoster, this is not meant to be an all-inclusive list. EKG interpreted by me (3pts min.). @ -As above X-rays interpreted by me (1pt min.). @ -Chest x-ray shows no acute abnormality CT interpreted by me (1pt min.). @ -None done U/S interpreted by me (1pt. min.). @ -None done What testing was considered but not performed or refused? (CT, X-rays, U/S, labs)? Why? @ -None What meds were considered but not given or refused? Why? @ -None Did you discuss the management of the patient with other professionals (professionals i.e. , PA, MARINE SPECIALIST, lab, RT, psych nurse, social service manager, social service manager, teacher, correction officer head, case management associate)? Give summary @ -No Was smoking cessation discussed for >3mins.? @ -No Was critical care preformed (if so, how long)? @ -No Were there social determinants of health that impacted care today? How? (Homelessness, low income, unemployed, alcoholism, drug addiction, transportation, low edu. Level, literacy, decrease access to med. care, snf, r ehab)? @ -No Was there de-escalation of care discussed even if they declined (Discuss DNR or withdrawal of care, Hospice)? DNR status @ -No What co-morbidities impacted this encounter? (DM, HTN, Smoking, COPD, CAD, Cancer, CVA, ARF, Chemo, Hep., AIDS, mental health diagnosis, sleep apnea, morbid obesity)? @ -None Was patient admitted / discharged? Hospital course, mention meds given and route, prescriptions, significant lab abnormalities, going to OR and other pertinent info. @ -Patient's chest pain was reproducible Toradol seemed to help her pain. Patient describes it as sharp in nature. Patient had no difficulty breathing or shortness of breath. Patient's lab work came back essentially normal patient will be discharged home and told to take Motrin 600. Undiagnosed new problem with uncertain prognosis? @ -No Drug Therapy requiring intensive monitoring for toxicity (Heparin, Nitro, In sulin, Cardizem)? @ -No Were any procedures done? @ -No Diagnosis/symptom? @ -Chest wall pain Acute, or Chronic, or Acute on Chronic? @ -Acute Uncomplicated (without systemic symptoms) or Complicated (systemic symptoms)? @ -Complicated Side effects of treatment? @ -No Exacerbation, Progression, or Severe Exacerbation? @ -No Poses a threat to life or bodily function? How? (Chest pain, [place], [place], pneumonia, PE, COPD, DKA, ARF, appy, cholecystitis, CVA, Diverticulitis, Homicidal, Suicidal, threat to staff... and all critical care pts) @ -No - Lab Data Result diagrams: 09/30/23 09:40 09/30/23 09:40 Lab Results 09/30/23 09/30/23 09/30/23 Range/Units 09:40 09:40 09:40 WBC 11.6 H (3.8-10.6) k/uL RBC 5.13 (3.80-5.40) m/uL Hgb 11.2 L (11.4-16.0) gm/dL Hct 37.7 (34.0-46.0) % MCV 73.5 L (80.0-100.0) fL MCH 21.8 L (25.0-35.0) pg MCHC 29.7 L (31.0-37.0) g/dL RDW 16.2 H (11.5-15.5) % Plt Count 278 (150-450) k/uL MPV 7.3 Neutrophils % 87 % Lymphocytes % 7 % Monocytes % 5 % Eosinophils % 1 % Basophils % 0 % Neutrophils # 10.1 H (1.3-7.7) k/uL Lymphocytes # 0.8 L (1.0-4.8) k/uL Monocytes # 0.6 (0-1.0) k/uL Eosinophils # 0.1 (0-0.7) k/uL Basophils # 0.0 (0-0.2) k/uL Hypochromasia Marked Anisocytosis Slight Microcytosis Slight Sodium 135 L (137-145) mmol/L Potassium 3.4 L (3.5-5.1) mmol/L Chloride 103 (98-107) mmol/L Carbon Dioxide 24 (22-30) mmol/L Anion Gap 8 mmol/L BUN 13 (7-17) mg/dL Creatinine 0.70 (0.52-1.04) mg/dL Est GFR (CKD-EPI)AfAm >90 (>60 ml/min/1.73 sqM) Est GFR (CKD-EPI)NonAf >90 (>60 ml/min/1.73 sqM) Glucose 81 (74-99) mg/dL Calcium 8.7 (8.4-10.2) mg/dL Total Bilirubin 0.6 (0.2-1.3) mg/dL AST 18 (14-36) U/L ALT 18 (4-34) U/L Alkaline Phosphatase 46 (38-126) U/L Troponin I <0.012 (0.000-0.034) ng/mL Total Protein 6.3 (6.3-8.2) g/dL Albumin 3.9 (3.5-5.0) g/dL Disposition Clinical Impression: Chest wall pain Disposition: HOME SELF-CARE Instructions (If sedation given, give patient instructions): Chest Pain (ED) Prescriptions: Ibuprofen [Motrin] 600 mg PO Q6HR PRN #20 tab PRN Reason: For pain Is patient prescribed a controlled substance at d/c from ED?: No Referrals: Thomas Walker MD [Primary Care Provider] - 1-2 days Time of Disposition: 10:53
[2023-09-30] MEDS: KETOROLAC 15 MG/ML 1 ML VIAL IM STA (09:31)
[2023-09-30 10:10] LABS: Anisocytosis Slight; Basophils % (A) 0 %; Eosinophils # (A) 0.1 k/uL (0-0.7); Eosinophils % (A) 1 %; HCT 37.7 % (34.0-46.0); HGB 11.2 gm/dL (11.4-16.0); Hypochromasia Marked; Lymphocytes # (A) 0.8 k/uL (1.0-4.8); Lymphocytes % (A) 7 %; MCH 21.8 pg (25.0-35.0); MCHC 29.7 g/dL (31.0-37.0); MCV 73.5 fL (80.0-100.0); Mean Platelet Volume 7.3; Microcytosis Slight; Monocytes # (A) 0.6 k/uL (0-1.0); Monocytes % (A) 5 %; Neutrophils # (A) 10.1 k/uL (1.3-7.7); Neutrophils % (A) 87 %; Platelet Count 278 k/uL (150-450); RBC 5.13 m/uL (3.80-5.40); RDW 16.2 % (11.5-15.5); WBC 11.6 k/uL (3.8-10.6)
[2023-09-30 10:13] LABS: ALT 18 U/L (4-34); AST 18 U/L (14-36); African American GFR (CKD) >90 (>60 ml/min/1.73 sqM); Albumin 3.9 g/dL (3.5-5.0); Alkaline Phosphatase 46 U/L (38-126); Anion Gap 8 mmol/L; Blood Urea Nitrogen 13 mg/dL (7-17); Calcium 8.7 mg/dL (8.4-10.2); Carbon Dioxide 24 mmol/L (22-30); Chloride 103 mmol/L (98-107); Glucose 81 mg/dL (74-99); Non-African American GFR(CKD) >90 (>60 ml/min/1.73 sqM); Potassium 3.4 mmol/L (3.5-5.1); Sodium 135 mmol/L (137-145); Total Bilirubin 0.6 mg/dL (0.2-1.3); Total Protein 6.3 g/dL (6.3-8.2)
--- NOTE | 2023-09-30 10:20 | XR ---
EXAMINATION TYPE: XR chest 2V DATE OF EXAM: 09/30/2023 COMPARISON: 08/19/2022 INDICATION: Difficulty breathing chest pain tightness TECHNIQUE: Frontal and lateral views of the chest are obtained. FINDINGS: The heart size is normal. The pulmonary vasculature is normal. The lungs are clear. IMPRESSION: 1. No acute pulmonary process.
[2023-09-30 12:02] VITALS: BP 139/93; PULSE 98
== END 2023-09-30 11:08 | disposition home or self-care (01) ==
LOC: EC 08:52
DX: R07.89 Other chest pain (principal)
CPT/HCPCS: 36415; 80053; 84484; 85025; 71046; 99285; 96372; J1885

== ENCOUNTER 2024-12-22 09:13 | Inpatient (IN) | payer BC ==
--- NOTE | 2024-12-22 09:54 | ED ---
Abdominal Pain HPI - General Stated Complaint: abd pain Time Seen by Provider: 12/22/24 09:52 Source: patient, RN notes reviewed Mode of arrival: ambulatory Limitations: no limitations - History of Present Illness Initial Comments: 39-year-old female presented the ER for evaluation of nausea, vomiting and epigastric abdominal pain. She states that upon waking this morning she has had persistent nausea and vomiting along with a stabbing epigastric abdominal pain with radiation inferiorly. Patient denies any diarrhea, constipation, dysuria or increasing urinary frequency. She denies any abnormal vaginal discharge or bleeding. Patient does states she would like to be tested for STDs as she recently had unprotected sexual intercourse. Patient states she feels overall weak. Patient denies any abdominal surgeries outside of sections. No history of ulcerative colitis or Crohn's disease. Patient has not taking anything for her current symptoms. She denies any dizziness, lightheadedness, chest pain, shortness of breath. - Related Data Home Medications Medication Instructions Recorded Confirmed ALPRAZolam [Xanax] 0.25 mg PO DAILY PRN 12/22/24 12/22/24 FLUoxetine HCL [PROzac] 20 mg PO DAILY 12/22/24 12/22/24 Previous Rx's Medication Instructions Recorded lisinopriL [Prinivil] 10 mg PO DAILY #30 tab 08/12/21 Allergies Allergy/AdvReac Type Severity Reaction Status Date / Time No Known Allergies Allergy Verified 12/22/24 14:17 Review of Systems ROS Statement: Those systems with pertinent positive or pertinent negative responses have been documented in the HPI. ROS Other: All systems not noted in ROS Statement are negative. Past Medical History Past Medical History: Hypertension, Supraventricular Tachycardia (SVT) Additional Past Medical History / Comment(s): tachycardia, svt History of Any Multi-Drug Resistant Organisms: None Reported Past Surgical History: Section Additional Past Surgical History / Comment(s): Debridement of right ankle and foot wounds Past Anesthesia/Blood Transfusion Reactions: No Reported Reaction Past Psychological History: No Psychological Hx Reported Smoking Status: Never smoker Past Alcohol Use History: Occasional Past Drug Use History: None Reported - Past Family History Father History Unknown: Yes Mother Family Medical History: COPD, Rheumatoid Arthritis (RA) General Exam - General Exam Comments Initial Comments: Visual Physical Exam Vital signs reviewed General: Well-appearing, nontoxic, no acute distress. Head: Normocephalic, atraumatic Eyes: PERRLA, EOMI ENT: Airway patent Chest: Nonlabored breathing Skin: No visual rash, normal skin tone Neuro: Alert and oriented 3 Musculoskeletal: No gross abnormalities Limitations: no limitations General appearance: alert, in no apparent distress Respiratory exam: Present: normal lung sounds bilaterally. Absent: respiratory distress, wheezes, rales, rhonchi, stridor Cardiovascular Exam: Present: normal rhythm, tachycardia, normal heart sounds GI/Abdominal exam: Present: soft, tenderness (Right upper quadrant/lower abdomen), normal bowel sounds External exam: Present: normal external exam Speculum exam: Present: cervical discharge (Scant thin white) By manual exam: Present: uterine enlargement, uterine tenderness, other (No cervical motion tenderness.) Neurological exam: Present: alert, oriented X3, CN II-XII intact Skin exam: Present: warm, dry, intact, normal color. Absent: rash Course Vital Signs 12/22/24 12/22/24 12/22/24 10:20 13:42 15:49 Temperature 101.9 F H 100 F H 98.9 F Pulse Rate 130 H 111 H 114 H Respiratory 22 18 18 Rate Blood Pressure 153/84 121/77 118/71 O2 Sat by Pulse 98 96 98 Oximetry - Reevaluation(s) Reevaluation #1: 12/22/24 14:44 Pelvic exam performed and chaperoned by Patricia PAEZ. Reevaluation #2: 12/22/24 16:22 Case discussed with on-call general surgery, Dr. Gonzalez. He is agreeable to be on consult. 12/22/24 16:33 Case discussed with on-call HOUSEKEEPING/LAUNDRY SUPERVISOR, . She is agreeable to be on co nsult. Medicine admission Reevaluation #3: 12/22/24 Patient met sepsis criteria 10:20 Patient roomed at 10:50. Antibiotics ordered at 13:47. Infection identified at 15:43. [place] body weight IV fluid bolus 1,920ml Reevaluation #4: Admission discussed with [facility] by my attending, Dr. Campos, as they were unable to be reached at my shift completion. Medical Decision Making - Medical Decision Making I performed the quick note portion of this chart. Electronically signed by Ellis Gomez PA-C Was pt. sent in by a medical professional or institution (Dr. PA, IT PROGRAM AUDITOR, urgent care, hospital, or senior living...) When possible be specific @ -No Did you speak to anyone other than the patient for history (EMS, parent, family, police, friend...)? What history was obtained from this source @ -No Did you review nursing and triage notes (agree or disagree)? Why? @ -I reviewed and agree with nursing and triage notes Were old charts reviewed (outside hosp., previous admission, EMS record, old EKG, old radiological studies, urgent care reports/EKG's, senior living records)? Report findings @ -No old charts were reviewed Differential Diagnosis (chest pain, altered mental status, abdominal pain women, abdominal pain men, vaginal bleeding, weakness, fever, dyspnea, syncope, hea dache, dizziness, GI bleed, back pain, seizure, CVA, palpatations, mental health, musculoskeletal)? @Differential Abdominal Pain Women:Appendicitis, Cholecystitis, diverticulosis, ischemic bowel, pancreatitis, hepatitis, UTI, gastroenteritis, AAA, incarcerated hernia, bowel obstruction, constipation, inflammatory bowel, hepatitis, peptic ulcer disease, splenic infarction, perforated viscus, vulvitis, ovarian torsion, PID, kidney stone, placenta abruption, this is not meant to be an all-inclusive list EKG interpreted by me (3pts min.). @ -As above X-rays interpreted by me (1pt min.). @ -None done CT interpreted by me (1pt min.). @ -CT abdomen pelvis remarkable for gallstone. There is a well-circumscribed hypodense area within the fundus of the uterus measuring 4.6 cm which may be a large fibroid. This has enlarged from comparison endometrial canal appears to be displaced. Adnexa appear normal. Small cortical renal cyst right kidney. No suspicious abnormality otherwise identified. U/S interpreted by me (1pt. min.). @ -Gallbladder ultrasound showing cholelithiasis and common bile duct measuring 0.9 cm. Transvaginal ultrasound showed a complex area within the right ovary. Fluid with moving debris surrounding a large echogenic area measuring 5.8 x 5.0 x 4.5 cm unable to definitively locate if this is endometrium or in uterus. Appropriate arterial and venous blood flow to bilateral ovaries. No evidence of ovarian torsion. What testing was considered but not performed or refused? (CT, X-rays, U/S, labs)? Why? @ -None What meds were considered but not given or refused? Why? @ -None Did you discuss the management of the patient with other professionals (professionals i.e. , PA, IT PROGRAM AUDITOR, lab, RT, psych nurse, social services specialist, probate paralegal, teacher, safety and security officer, caser shoe parts)? Give summary @ -Case discussed with on-call general surgery, Dr. Gonzalez, he is agreeable for admission. Case also discussed with [place] HOUSEKEEPING/LAUNDRY SUPERVISOR, , requesting medicine admission with HOUSEKEEPING/LAUNDRY SUPERVISOR on consult. Was smoking cessation discussed for >3mins.? @ -No Was critical care preformed (if so, how long)? @ -No Were there social determinants of health that impacted care today? How? (Homelessness, low income, unemployed, alcoholism, drug addiction, transportati on, low edu. Level, literacy, decrease access to med. care, group home, rehab)? @ -No Was there de-escalation of care discussed even if they declined (Discuss DNR or withdrawal of care, Hospice)? DNR status @ -No What co-morbidities impacted this encounter? (DM, HTN, Smoking, COPD, CAD, Cancer, CVA, ARF, Chemo, Hep., AIDS, mental health diagnosis, sleep apnea, morbid obesity)? @ -Hypertension, history of SVT. Was patient admitted / discharged? Hospital course, mention meds given and route, prescriptions, significant lab abnormalities, going to OR and other pertinent info. @ -Admitted. 39 year old female presenting to the ER for evaluation of nausea, vomiting and abdominal pain. Workup initiated in triage prior to rooming. Upon my evaluation, patient febrile at 101.9F and tachycardia at 130 bpm. Vitals otherwise stable. Patient actively vomiting during examination. Patient is ill- appearing no signs of acute respiratory distress. Abdominal exam remarkable for tenderness noted to lower abdomen with normal bowel sounds. No rebound or guarding. Pelvic exam performed and chaperoned by Patricia PAEZ. Exam remarkable for thin white cervical discharge and exquisite uterine tenderness on bimanual exam. No cervical motion tenderness. Cervical cultures pending. Laboratory studies along with CT abdomen pelvis will be obtained. Laboratory studies remarkable for leukocytosis of 12.4 with a left shift. Microcytic hypochromic anemia 9.6, patient reports history of iron deficiency anemia. Lactic 2.2. Urinalysis unremarkable. Urine hCG negative. Viral swabs negative. CT abdomen pelvis initially obtained showing cholelithiasis along with a well-circums cribed hypodense area within the fundus of the uterus measuring 4.6 cm possibly fibroid. This is enlarged from prior. Given CT findings, transvaginal and gallbladder ultrasounds obtained. Gallbladder ultrasound showing cholelithiasis with common bile duct measuring 0.9 cm. Transvaginal ultrasound showing complex area of right ovary. Appears to be fluid and debris surrounding a large echogenic area measuring 5.8 x 5.0 x 4.3 cm located either an endometrium or uterus. Given concern of sepsis patient provided with 2 L lactated ringer fluid bolus and started on maintenance fluid at 130 cc/h. Patient also provided Tylenol, Toradol, Zofran and morphine for fever and symptom control, with imp rovement. Patient initially received IV Rocephin, blood cultures obtained prior to antibiotic initiation. Case was discussed with on-call general surgery, Dr. Gonzalez, regarding gallbladder findings he is agreeable to consult. Case also discussed with on-call HOUSEKEEPING/LAUNDRY SUPERVISOR, she is agreeable with plan and consultation. She is requesting medicine admission. Patient will be admitted to [facility] for IV antibiotic treatment of sepsis rule out PID with general surgery and HOUSEKEEPING/LAUNDRY SUPERVISOR on consult. Patient will be prophylactically treated with IV Rocephin, IV Flagyl and doxycycline, PID. Results discussed with patient and all questions answered. Patient is agreeable for admission and admitted in stable condition for further evaluation and treatment. Case discussed with ED attending, Dr. Campos. Undiagnosed new problem with uncertain prognosis? @ -No Drug Therapy requiring intensive monitoring for toxicity (Heparin, Nitro, Insulin, Cardizem)? @ -No Were any procedures done? @ -No Diagnosis/symptom? @ -Gallstone/sepsis/rule out PID/possible exposure to STD Acute, or Chronic, or Acute on Chronic? @ -Acute Uncomplicated (without systemic symptoms) or Complicated (systemic symptoms)? @ -Complicated Side effects of treatment? @ -No Exacerbation, Progression, or Severe Exacerbation? @ -No Poses a threat to life or bodily function? How? (Chest pain, [place], SD, pneumonia, PE, COPD, DKA, ARF, appy, cholecystitis, CVA, Diverticulitis, Homicidal, Suicidal, threat to staff... and all critical care pts) @ -Yes, sepsis - Lab Data Result diagrams: 12/22/24 11:29 12/22/24 11:29 Lab Results 12/22/24 12/22/24 12/22/24 Range/Units 11:05 11:05 11:29 WBC 12.40 H (4.50-10.00) 10*3/uL RBC 4.45 (4.10-5.20) 10*6/uL Hgb 9.6 L (12.0-15.0) g/dL Hct 32.1 L (37.2-46.3) % MCV 72.1 L (80.0-97.0) fL MCH 21.6 L (27.0-32.0) pg MCHC 29.9 L (32.0-37.0) g/dL Plt Count 339 (140-440) 10*3/uL MPV 9.7 (9.5-12.2) fL Immature Gran % (Auto) 0.3 % Neutrophils % 94.4 % Lymphocytes % 2.5 % Monocytes % 2.6 % Eosinophils % 0.0 % Basophils % 0.2 % Immature Gran # 0.04 (0.00-0.04) 10*3/uL Neutrophils # 11.70 H (1.80-7.70) 10*3/uL Lymphocytes # 0.31 L (0.90-5.00) 10*3/uL Monocytes # 0.32 (0.20-1.00) 10*3/uL Eosinophils # 0.00 L (0.04-0.35) 10*3/uL Basophils # 0.03 (0.00-0.10) 10*3/uL Sodium (137-145) mmol/L Potassium (3.5-5.1) mmol/L Chloride (98-107) mmol/L Carbon Dioxide (22-30) mmol/L Anion Gap mmol/L BUN (7-17) mg/dL Creatinine (0.52-1.04) mg/dL Est GFR (CKD-EPI)AfAm (>60 ml/min/1.73 sqM) Est GFR (CKD-EPI)NonAf (>60 ml/min/1.73 sqM) Glucose (74-99) mg/dL Lactic Ac Sepsis Rflx Plasma Lactic Acid Ace (0.7-2.0) mmol/L Calcium (8.4-10.2) mg/dL Total Bilirubin (0.2-1.3) mg/dL AST (14-36) U/L ALT (4-34) U/L Alkaline Phosphatase (38-126) U/L Total Protein (6.3-8.2) g/dL Albumin (3.5-5.0) g/dL Amylase (30-110) U/L Lipase (23-300) U/L Urine Color Light Yellow Urine Appearance Clear (Clear) Urine pH 7.5 (5.0-8.0) Ur Specific [place] 1.014 (1.001-1.035) Urine Protein Negative (Negative) Urine Glucose (UA) Negative (Negative) Urine Ketones Negative (Negative) Urine Blood Negative (Negative) Urine Nitrite Negative (Negative) Urine Bilirubin Negative (Negative) Urine Urobilinogen <2.0 (<2.0) mg/dL Ur Leukocyte Esterase Negative (Negative) Urine HCG, Qual Not Detected (Not Detectd) Influenza Type A (PCR) (Not Detectd) Influenza Type B (PCR) (Not Detectd) RSV (PCR) (Not Detectd) SARS-CoV-2 (PCR) (Not Detectd) 12/22/24 12/22/24 12/22/24 Range/Units 11:29 11:29 12:09 WBC (4.50-10.00) 10*3/uL RBC (4.10-5.20) 10*6/uL Hgb (12.0-15.0) g/dL Hct (37.2-46.3) % MCV (80.0-97.0) fL MCH (27.0-32.0) pg MCHC (32.0-37.0) g/dL Plt Count (140-440) 10*3/uL MPV (9.5-12.2) fL Immature Gran % (Auto) % Neutrophils % % Lymphocytes % % Monocytes % % Eosinophils % % Basophils % % Immature Gran # (0.00-0.04) 10*3/uL Neutrophils # (1.80-7.70) 10*3/uL Lymphocytes # (0.90-5.00) 10*3/uL Monocytes # (0.20-1.00) 10*3/uL Eosinophils # (0.04-0.35) 10*3/uL Basophils # (0.00-0.10) 10*3/uL Sodium 137 (137-145) mmol/L Potassium 4.3 (3.5-5.1) mmol/L Chloride 106 (98-107) mmol/L Carbon Dioxide 19 L (22-30) mmol/L Anion Gap 12 mmol/L BUN 5 L (7-17) mg/dL Creatinine 0.70 (0.52-1.04) mg/dL Est GFR (CKD-EPI)AfAm >90 (>60 ml/min/1.73 sqM) Est GFR (CKD-EPI)NonAf >90 (>60 ml/min/1.73 sqM) Glucose 93 (74-99) mg/dL Lactic Ac Sepsis Rflx Y Plasma Lactic Acid Ace 2.2 H* (0.7-2.0) mmol/L Calcium 9.3 (8.4-10.2) mg/dL Total Bilirubin 0.7 (0.2-1.3) mg/dL AST 34 (14-36) U/L ALT 19 (4-34) U/L Alkaline Phosphatase 66 (38-126) U/L Total Protein 7.3 (6.3-8.2) g/dL Albumin 4.7 (3.5-5.0) g/dL Amylase 65 (30-110) U/L Lipase 117 (23-300) U/L Urine Color Urine Appearance (Clear) Urine pH (5.0-8.0) Ur Specific [place] (1.001-1.035) Urine Protein (Negative) Urine Glucose (UA) (Negative) Urine Ketones (Negative) Urine Blood (Negative) Urine Nitrite (Negative) Urine Bilirubin (Negative) Urine Urobilinogen (<2.0) mg/dL Ur Leukocyte Esterase (Negative) Urine HCG, Qual (Not Detectd) Influenza Type A (PCR) (Not Detectd) Influenza Type B (PCR) (Not Detectd) RSV (PCR) (Not Detectd) SARS-CoV-2 (PCR) (Not Detectd) 12/22/24 12/22/24 Range/Units 13:40 14:32 WBC (4.50-10.00) 10*3/uL RBC (4.10-5.20) 10*6/uL Hgb (12.0-15.0) g/dL Hct (37.2-46.3) % MCV (80.0-97.0) fL MCH (27.0-32.0) pg MCHC (32.0-37.0) g/dL Plt Count (140-440) 10*3/uL MPV (9.5-12.2) fL Immature Gran % (Auto) % Neutrophils % % Lymphocytes % % Monocytes % % Eosinophils % % Basophils % % Immature Gran # (0.00-0.04) 10*3/uL Neutrophils # (1.80-7.70) 10*3/uL Lymphocytes # (0.90-5.00) 10*3/uL Monocytes # (0.20-1.00) 10*3/uL Eosinophils # (0.04-0.35) 10*3/uL Basophils # (0.00-0.10) 10*3/uL Sodium (137-145) mmol/L Potassium (3.5-5.1) mmol/L Chloride (98-107) mmol/L Carbon Dioxide (22-30) mmol/L Anion Gap mmol/L BUN (7-17) mg/dL Creatinine (0.52-1.04) mg/dL Est GFR (CKD-EPI)AfAm (>60 ml/min/1.73 sqM) Est GFR (CKD-EPI)NonAf (>60 ml/min/1.73 sqM) Glucose (74-99) mg/dL Lactic Ac Sepsis Rflx Plasma Lactic Acid Ace 1.2 (0.7-2.0) mmol/L Calcium (8.4-10.2) mg/dL Total Bilirubin (0.2-1.3) mg/dL AST (14-36) U/L ALT (4-34) U/L Alkaline Phosphatase (38-126) U/L Total Protein (6.3-8.2) g/dL Albumin (3.5-5.0) g/dL Amylase (30-110) U/L Lipase (23-300) U/L Urine Color Urine Appearance (Clear) Urine pH (5.0-8.0) Ur Specific [place] (1.001-1.035) Urine Protein (Negative) Urine Glucose (UA) (Negative) Urine Ketones (Negative) Urine Blood (Negative) Urine Nitrite (Negative) Urine Bilirubin (Negative) Urine Urobilinogen (<2.0) mg/dL Ur Leukocyte Esterase (Negative) Urine HCG, Qual (Not Detectd) Influenza Type A (PCR) Not Detected (Not Detectd) Influenza Type B (PCR) Not Detected (Not Detectd) RSV (PCR) Not Detected (Not Detectd) SARS-CoV-2 (PCR) Not Detected (Not Detectd) - EKG Data -: EKG Interpreted by Me EKG Comments: EKG taken at 11: 14 showing sinus tachycardia. No ST segment elevations or depressions. No T wave inversions. Ventricular rate 116, GA interval 139, QRS duration 69, QT/QTc 341/410. - Radiology Data Radiology results: report reviewed, image reviewed Disposition Clinical Impression: Gallstone, Abnormal transvaginal ultrasound, Sepsis, Possible exposure to STD Disposition: ADMITTED IP TO THIS [facility] Condition: Stable Referrals: None,Stated [REFERRING] - 1-2 days Time of Disposition: 16:30
[2024-12-22] MEDS: ACETAMINOPHEN TAB 500 MG TAB PO STA (11:16)
[2024-12-22 11:27] LABS: Appearance,Urine Clear (Clear); Bilirubin,Urine Negative (Negative); Blood,Urine Negative (Negative); Color,Urine Light Yellow; Glucose,Urine (UA) Negative (Negative); Ketones,Urine Negative (Negative); Leukocyte Esterase,Urine Negative (Negative); Nitrite,Urine Negative (Negative); PH, Urine 7.5 (5.0-8.0); Protein,Urine Negative (Negative); Specific Gravity,Urine 1.014 (1.001-1.035); Urobilinogen,Urine <2.0 mg/dL (<2.0)
[2024-12-22] MEDS: ONDANSETRON 4 MG/2 ML VIAL IVP STA (11:33)
[2024-12-22 11:36] LABS: Basophils # (A) 0.03 10*3/uL (0.00-0.10); Basophils % (A) 0.2 %; HCT 32.1 % (37.2-46.3); HGB 9.6 g/dL (12.0-15.0); Lymphocytes # (A) 0.31 10*3/uL (0.90-5.00); Lymphocytes % (A) 2.5 %; MCH 21.6 pg (27.0-32.0); MCHC 29.9 g/dL (32.0-37.0); MCV 72.1 fL (80.0-97.0); Mean Platelet Volume 9.7 fL (9.5-12.2); Monocytes # (A) 0.32 10*3/uL (0.20-1.00); Monocytes % (A) 2.6 %; Neutrophils % (A) 94.4 %; Platelet Count 339 10*3/uL (140-440); RBC 4.45 10*6/uL (4.10-5.20); RDW 16.6 % (11.5-14.5)
[2024-12-22] MEDS: LACTATED RINGERS 1,000 ML IV SCH ×2 (11:38→16:58)
[2024-12-22 11:54] LABS: ALT 19 U/L (4-34); AST 34 U/L (14-36); African American GFR (CKD) >90 (>60 ml/min/1.73 sqM); Albumin 4.7 g/dL (3.5-5.0); Alkaline Phosphatase 66 U/L (38-126); Amylase 65 U/L (30-110); Anion Gap 12 mmol/L; Blood Urea Nitrogen 5 mg/dL (7-17); Calcium 9.3 mg/dL (8.4-10.2); Carbon Dioxide 19 mmol/L (22-30); Chloride 106 mmol/L (98-107); Glucose 93 mg/dL (74-99); Lipase 117 U/L (23-300); Non-African American GFR(CKD) >90 (>60 ml/min/1.73 sqM); Potassium 4.3 mmol/L (3.5-5.1); Sodium 137 mmol/L (137-145); Total Bilirubin 0.7 mg/dL (0.2-1.3); Total Protein 7.3 g/dL (6.3-8.2)
[2024-12-22] MEDS: KETOROLAC 15 MG/ML 1 ML VIAL IVP STA (12:39)
--- NOTE | 2024-12-22 13:26 | CT ---
EXAMINATION TYPE: CT abdomen pelvis w con DATE OF EXAM: 12/22/2024 12:14 PM COMPARISON: 01/05/2018 CLINICAL INDICATION: Female, 39 years old with history of lower abd pain n/v/fever, N,V, FEVER AND GA S TO LOWER ABDOMINAL PAIN TECHNIQUE: Axial images were obtained from above the diaphragm to the pubic rami in the axial plane a t 5 mm thick sections. Reconstructed images are reviewed on the computer in the coronal plane. CONTRAST: 100ml mL of Isovue 300. Study performed without Oral Contrast DLP: 735.1 mGycm, Automated exposure control for dose reduction was used. FINDINGS: Limited CT sections are obtained the lung bases. The lung bases are clear. CT ABDOMEN: Liver: Normal Spleen: Normal Pancreas: Normal Adrenal glands: The adrenal glands are normal. Gallbladder: Gallstone present Kidneys: No masses are evident. No hydronephrosis is present. Small cortical renal cyst on the righ t kidney cortex Delayed images were obtained through the kidneys, which remain unremarkable. Aorta: Normal Inferior vena cava: Normal. CT PELVIS: Loops of bowel within the abdomen and pelvis are normal. There are loops of bowel which are incom pletely distended or lack oral contrast limiting their evaluation. Appendix: Normal as visualized. Urinary bladder: Normal. Genitourinary structures: Uterus is in normal position. There is a well-circumscribed hypodense area within the fundus of the uterus measuring 4.6 cm may be a large fibroid. This has enlarged from [place] Endometrial canal appears to be displaced. Adnexa appear normal Osseous structures: No suspicious lytic or sclerotic lesions. IMPRESSION: 1. No suspicious abnormality to account for patient's abdominal symptoms. 2. Suspected uterine fibroid. This could be evaluated with ultrasound [facility], , 12/22/2024 1:23 PM
[2024-12-22] MEDS: MORPHINE SULFATE 2 MG/ML SYRINGE IVP ONE (13:45)
[2024-12-22] MEDS: cefTRIAXone IN SWFI 1,000 MG/10 ML SYRINGE IVP STA (13:57)
[2024-12-22] MEDS: MORPHINE SULFATE 4 MG/ML SYRINGE IVP STA (14:26)
[2024-12-22 14:27] LABS: Influenza A Not Detected (Not Detectd); Influenza B Not Detected (Not Detectd); RSV Not Detected (Not Detectd)
--- NOTE | 2024-12-22 15:43 | US ---
EXAMINATION TYPE: US gallbladder DATE OF EXAM: 12/22/2024 COMPARISON: NONE CLINICAL INDICATION: Female, 39 years old with history of gallstone RUQ abd pain; RUQ pain TECHNIQUE: Grayscale and color Doppler imaging of the right upper quadrant was performed. FINDINGS: EXAM MEASUREMENTS: Liver Length: 13.2 cm Gallbladder Wall: 0.16 cm CBD: 0.86 cm Right Kidney: 10.7 x 4.5 x 4.6 cm SPECIALIST WOUND CARE NOTES: Pancreas: duct measuring 3mm Liver: wnl Gallbladder: singular gallstone seen measuring 1.1cm Evidence for sonographic [place]'s sign: No CBD: possibly dilated Right Kidney: wnl IMPRESSION: 1. Cholelithiasis. 2. Dilated common bile duct is 0.9 cm. Normal less than 0.6 cm. [facility], , 12/22/2024 3:41 PM
--- NOTE | 2024-12-22 15:45 | US ---
EXAMINATION TYPE: US transvaginal DATE OF EXAM: 12/22/2024 COMPARISON: CT: Today CLINICAL INDICATION: Female, 39 years old with history of lower ab pain; RUQ pain TECHNIQUE: Transvaginal (TV). Transabdominal grayscale sonographic images of the pelvis were acquired. Transvaginal sonographic im ages were medically necessary to better assess the following anatomy: Endometrium Doppler imaging: Not performed. FINDINGS: Date of LMP: 12/20/19 EXAM MEASUREMENTS: Uterus: 12.3 x 7.8 x 7.1 cm Endometrial Stripe: not well seen Right Ovary: 3.5x 3.0 x 2.0 cm Left Ovary: 2.9 x 1.9 x 2.5 cm 1. Uterus: Anteverted Large echogeic area seen. Unsure if location is in endometrium or uterus 2. Endometrium: Not well visualized. There appears to be fluid with moving debris surrounding a larg e echogenic area measuring 5.8 x 5.0 x 4.4cm, unable to determine if location is endo or uterus. 3. Right Ovary: complex area seen measuring 1.6 x 1.7 x 1.4cm 4. Left Ovary: wnl, unable to get good blood flow due to positioning and depth on TV exam Spectral, color and waveform doppler imaging shows good arterial and venous flow within the ovaries ; there is no evidence for ovarian torsion. 5. Bilateral Adnexa: wnl 6. Posterior cul-de-sac: wnl IMPRESSION: 1. Complex area within the right ovary. Follow-up recommended. 2. Fluid and debris which may be within the endometrial canal. The location is somewhat unclear and a dditional workup is recommended. O-RADS 2021 [email or web address] [facility], , 12/22/2024 3:43 PM
[2024-12-22] MEDS ORDERED: NALOXONE 0.4 MG/ML 1 ML VIAL IV PRN (16:35)
[2024-12-22] MEDS: DOXYCYCLINE 100 MG TABLET PO SCH (16:55)
[2024-12-22] MEDS: metroNIDAZOLE-NS PMX 500 MG in SALINE 1 100ML.BAG IVPB SCH (16:55)
[2024-12-22] MEDS: ONDANSETRON 4 MG/2 ML VIAL IVP PRN (17:33)
[2024-12-22] MEDS: MORPHINE SULFATE 2 MG/ML SYRINGE IV PRN (17:34)
[2024-12-23] MEDS: ACETAMINOPHEN TAB 325 MG TAB PO PRN (02:10)
[2024-12-23] MEDS: SODIUM CHLORIDE 0.9% 1,000 ML IV ONE (02:18)
[2024-12-23] MEDS: KETOROLAC 15 MG/ML 1 ML VIAL IVP PRN (05:22)
[2024-12-23] MEDS ORDERED: ALPRAZolam 0.25 MG TAB PO PRN (10:31)
--- NOTE | 2024-12-23 11:52 | P.OBCN ---
<Leanne Love - Last Filed: 12/23/24 11:38> History of Present Illness Consult date: 12/23/24 Reason for consult: pelvic pain, other Chief complaint: abdominal pain History of present illness: Patient is a 39-year-old admitted to medicine for whom we are consulted for lower abdominal/pelvic pain. She states that yesterday she developed sudden onset constant abdominal pain that is worse in the RUQ and lower abdomen as well as nausea and vomiting. She reports history of regular heavy menses lasting 5-7 days necessitating tampons and pads. Her most recent menses ended a few days ago and was normal for her. She denies ever being diagnosed with PCOS or endometriosis but does suspect that she might have endometriosis due to heavy periods and pain. Family history of ovarian cancer in maternal aunt and cervical cancer in sister. She has a history of two previous c-sections last 14 years ago. She reports that she recently had unprotected sexual intercourse and swabs were obtained in the ED and results are pending. She denies abnormal vaginal discharge or bleeding. Review of Systems Constitutional: Reports fever Cardiovascular: Denies chest pain, Denies shortness of breath Gastrointestinal: Reports nausea, Reports vomiting Genitourinary: Reports dysmenorrhea, Reports pelvic pain, Denies abnormal vagin al bleeding, Denies vaginal discharge Menstruation: Reports menses 1-7 days, Reports period heavy Past Medical History Past Medical History: Hypertension, Supraventricular Tachycardia (SVT) Additional Past Medical History / Comment(s): tachycardia, svt History of Any Multi-Drug Resistant Organisms: None Reported Past Surgical History: Section Additional Past Surgical History / Comment(s): Debridement of right ankle and foot wounds Past Anesthesia/Blood Transfusion Reactions: No Reported Reaction Past Psychological History: No Psychological Hx Reported Smoking Status: Never smoker Past Alcohol Use History: Occasional Past Drug Use History: None Reported - Past Family History Father History Unknown: Yes Mother Family Medical History: COPD, Rheumatoid Arthritis (RA) Medications and Allergies Home Medications Medication Instructions Recorded Confirmed Type lisinopriL [Prinivil] 10 mg PO DAILY #30 tab 08/12/21 12/22/24 Rx ALPRAZolam [Xanax] 0.25 mg PO DAILY PRN 12/22/24 12/22/24 History FLUoxetine HCL [PROzac] 20 mg PO DAILY 12/22/24 12/22/24 History Allergies Allergy/AdvReac Type Severity Reaction Status Date / Time No Known Allergies Allergy Verified 12/22/24 14:17 Exam Vital Signs Temp Pulse Pulse Resp BP BP Pulse Ox 12/23/24 09:02 95/60 12/23/24 07:29 97.8 F 93 16 93/59 99 12/23/24 07:27 68 16 103/70 98 12/23/24 05:16 98.6 F 95 16 103/70 100 12/23/24 02:08 100.0 F H 120 H 18 89/52 98 12/22/24 22:08 113 H 16 107/67 97 12/22/24 18:59 114 H 18 101/69 97 12/22/24 15:49 98.9 F 114 H 18 118/71 98 12/22/24 13:42 100 F H 111 H 18 121/77 96 12/22/24 10:20 101.9 F H 130 H 22 153/84 98 Vital signs are stable. General: No acute distress. Patient lying comfortably in bed. HEENT: Head exam is unremarkable. EOMI bilaterally. ACs patent. Nares patent. Lungs: Breathing comfortably on room air. Symmetric chest expansion. Heart: Rate regular. Abdomen: Soft, diffuse tenderness, guarding present. Bowel sounds present. : Bimanual and speculum exam deferred at this time. Extremities: No edema present. Symmetric movement. Results Result Diagrams: 12/22/24 11:29 12/22/24 11:29 Abnormal Lab Results - Last 24 Hours (Table) 12/22/24 12/22/24 12/22/24 Range/Units 11:29 11:29 11:29 WBC 12.40 H (4.50-10.00) 10*3/uL Hgb 9.6 L (12.0-15.0) g/dL Hct 32.1 L (37.2-46.3) % MCV 72.1 L (80.0-97.0) fL MCH 21.6 L (27.0-32.0) pg MCHC 29.9 L (32.0-37.0) g/dL Neutrophils # 11.70 H (1.80-7.70) 10*3/uL Lymphocytes # 0.31 L (0.90-5.00) 10*3/uL Eosinophils # 0.00 L (0.04-0.35) 10*3/uL Carbon Dioxide 19 L (22-30) mmol/L BUN 5 L (7-17) mg/dL Plasma Lactic Acid Ace 2.2 H* (0.7-2.0) mmol/L Assessment and Plan Assessment: Patient is a 39-year-old female admitted to medicine for whom we are consulted for pelvic pain. (1) Abdominal pain Current Visit: Yes Status: Acute Code(s): R10.9 - UNSPECIFIED ABDOMINAL PAIN SNOMED Code(s): 30627613 (2) Pelvic pain Current Visit: Yes Status: Acute Code(s): R10.2 - PELVIC AND PERINEAL PAIN SNOMED Code(s): 24830420 Plan: - Patient currently on Rocephin, Flagyl, and doxycycline - Low suspicion for PID, pain more likely to be gallbladder in origin - Uterine fibroid on ultrasound, recommend outpatient management Thank you for the consultation. We will continue to monitor her during her hospital stay. <Opal Ohara - Last Filed: 12/24/24 08:53> Exam Vital Signs Temp Pulse Resp BP Pulse Ox 12/24/24 07:10 99.2 F 95 16 137/82 97 12/24/24 02:20 98.9 F 101 H 16 122/74 98 12/24/24 01:04 99.2 F 107 H 16 121/78 99 12/23/24 19:06 98.8 F 99 16 125/83 99 12/23/24 14:00 98.4 F 95 14 114/72 100 12/23/24 11:52 100 F H 105 H 108/69 99 12/23/24 09:02 95/60 Intake and Output 12/23/24 12/24/24 12/24/24 22:59 06:59 14:59 Other: Voiding Method Toilet Toilet # Voids 3 4 exam performed: normal external female genitalia. Endocervical gonorrhea/chlamydia/trichomonas testing collected. No cervical motion tenderness. Fundal tenderness appreciated on bimanual exam, no adnexal masses or tenderness. Results Result Diagrams: 12/24/24 05:58 12/22/24 11:29 Abnormal Lab Results - Last 24 Hours (Table) 12/24/24 Range/Units 05:58 WBC 16.49 H (4.50-10.00) X 10*3/uL RBC 3.42 L (4.10-5.20) X 10*6/uL Hgb 7.3 L (12.0-15.0) g/dL Hct 24.8 L (37.2-46.3) % MCV 72.5 L (80.0-97.0) FL MCH 21.3 L (27.0-32.0) pg MCHC 29.4 L (32.0-37.0) g/dL RDW 17.1 H (11.5-14.5) % Microbiology - Last 24 Hours (Table) 12/22/24 11:29 Blood Culture - Preliminary Blood Assessment and Plan Plan: I was present for the hawk/critical components of the service performed by the resident. I discussed the case with the resident/fellow and agree with the findings and plans documented in the resident/fellow's note amended herein by me. See resident's note for complete details of service. Faculty/Resident saw the patient on 12/24/2024. Agree, low suspicion for PID. Will continue empiric treatment for PID IV antibiotics as mentioned about. Notice leukocytosis has worsened this AM and patient has no improvement in symptoms after 36 hours of IV Rocephin/Flagyl, PO Doxycycline. Feel this is gallbladder etiology. Will sign off from the patient at this time.
--- NOTE | 2024-12-23 13:29 | P.GSCN ---
History of Present Illness Consult date: 12/23/24 History of present illness: CHIEF COMPLAINT: Abdominal pain HISTORY OF PRESENT ILLNESS: This is a 39-year-old female who presented to the the hospital with complaints of epigastric pain and nausea and vomiting that started yesterday around 6 AM. Patient also reports having vomiting. Pain actually radiates across the upper abdomen. She also complains of pain in the suprapubic area. Patient denies any vaginal discharge. She had a CT scan abdomen pelvis completed that reported a suspected uterine fibroid. Gallbladder ultrasound had reported gallstones and dilation of CBD of 0.9 cm. Patient was febrile on admission with tachycardia and hypotension. There had been some concern for possible STD and pelvic inflammatory disease and ER physician did obtain vaginal cultures. Results are pending. Past surgical history includes . PAST MEDICAL HISTORY: See below PAST SURGICAL HISTORY: See below MEDICATIONS: See below ALLERGIES: See below SOCIAL HISTORY: No illicit drug use. REVIEW OF SYSTEMS: CONSTITUTIONAL: Denies fever or chills. HEENT: Denies blurred vision, vision changes, or eye pain. Denies hemoptysis CARDIOVASCULAR: Denies chest pain or pressure. RESPIRATORY: No shortness of breath. GASTROINTESTINAL: See HPI for pertinent findings HEMATOLOGIC: Denies bleeding disorders. GENITOURINARY: Denies any blood in urine or increased urinary frequency. SKIN: Denies pruitis. Denies rash. PHYSICAL EXAM: VITAL SIGNS: Reviewed GENERAL: Well-developed in no acute distress. HEENT: No sclera icterus. Extraocular movements grossly intact. Moist buccal mucosa. Head is atraumatic, normocephalic. No nasal drainage. ABDOMEN: Soft. Nondistended. Tenderness palpation epigastric and right upper quadrant with guarding. Also tenderness noted in the suprapubic area. NEUROLOGIC: Alert and oriented. Cranial nerves II through XII grossly intact. LABORATORY DATA: WBC 12.4 Hgb 9.6 platelets 339 Sodium 137 potassium 4.3 creatinine 0.70 Lactic acid 2.2 down to 1.2 LFTs normal lipase 117 Urine hCG not detected. No evidence of infection on UA Vaginal cultures pending IMAGING: CT scan abdomen pelvis reports no suspicious abnormality to account for patient's abdominal symptoms. Suspected uterine fibroid. Gallbladder ultrasound reports cholelithiasis. Dilated common bile duct is 0.9 cm Transvaginal ultrasound reports complex area within the right ovary. Fluid and debris which may be within the endometrial canal. ASSESSMENT: 1. Right upper quadrant and epigastric pain with gallbladder ultrasound reporting cholelithiasis and dilated CBD of 0.9 cm 2. Sepsis present on admission 3. Suprapubic tenderness and suspected uterine fibroid on CT PLAN: - HIDA scan ordered to evaluate for acute cholecystitis - Continue antibiotics - Keep patient n.p.o. - Continue pain management - Continue IV fluids Physician Marine Safety Officer note has been reviewed by physician. Signing provider agrees with the documented findings, assessment, and plan of care. Will plan for HIDA scan. Abdomen soft, minimal TTP, [place] [facility] [phone] Past Medical History Past Medical History: Hypertension, Supraventricular Tachycardia (SVT) Additional Past Medical History / Comment(s): tachycardia, svt History of Any Multi-Drug Resistant Organisms: None Reported Past Surgical History: Section Additional Past Surgical History / Comment(s): Debridement of right ankle and foot wounds Past Anesthesia/Blood Transfusion Reactions: No Reported Reaction Past Psychological History: No Psychological Hx Reported Smoking Status: Never smoker Past Alcohol Use History: Occasional Past Drug Use History: None Reported - Past Family History Father History Unknown: Yes Mother Family Medical History: COPD, Rheumatoid Arthritis (RA) Medications and Allergies Home Medications Medication Instructions Recorded Confirmed Type lisinopriL [Prinivil] 10 mg PO DAILY #30 tab 08/12/21 12/22/24 Rx ALPRAZolam [Xanax] 0.25 mg PO DAILY PRN 12/22/24 12/22/24 History FLUoxetine HCL [PROzac] 20 mg PO DAILY 12/22/24 12/22/24 History Allergies Allergy/AdvReac Type Severity Reaction Status Date / Time No Known Allergies Allergy Verified 12/22/24 14:17 Surgical - Exam Vital Signs Temp Pulse Resp BP Pulse Ox 101.9 F H 130 H 22 153/84 98 12/22/24 10:20 12/22/24 10:20 12/22/24 10:20 12/22/24 10:20 12/22/24 10:20 Results - Labs 12/22/24 11:29 12/22/24 11:29
[2024-12-23] MEDS: FLUoxetine HCL 20 MG CAP PO SCH (18:19)
--- NOTE | 2024-12-23 18:51 | NM ---
EXAMINATION TYPE: NM hepatobiliary wo EF DATE OF EXAM: 12/23/2024 COMPARISON: NONE INDICATION: Abdominal pain TECHNIQUE: After the intravenous administration of 5.3 mCi Tc 99m Mebrofenin hepatobiliary scintigrap hy is performed. Images were obtained immediately post injection. FINDINGS: There is prompt uptake and excretion of radiotracer by the liver. Extrahepatic ducts are identified at 6 minutes. The gallbladder is not visualized within 1 hour. 90 minute 4 hour delayed images were obtained with n onvisualization of the gallbladder. Small bowel activity is noted within 8 minutes. IMPRESSION: 1. Findings are compatible with cystic duct obstruction. A [place] level critical message alert has been initiated for Tuyet Varghese MD via the [employer] Critical Results System on 12/23/2024 6:48 PM. This message alert has been sent to Tuyet Varghese MD via the preferences provided by the clinician for the receipt of Radiology Critical Findings. Message ID [id number]. [facility], , 12/23/2024 6:48 PM
[2024-12-24] MEDS ORDERED: METOCLOPRAMIDE 5 MG/ML 2 ML VIAL IVP PRN (00:32)
--- NOTE | 2024-12-24 03:56 | P.HPIM ---
History of Present Illness H&P Date: 12/23/24 This is a pleasant 39-year-old female who presented to the emergency department with nausea and vomiting along with epigastric abdominal pain. Patient follows with Dr. Walker hypertension, SVT. Patient reports she recently had unprotected sex and has been having some diffuse abdominal and lower pelvic tenderness. Labs reviewed with a white count of 12.4, hemoglobin 9.6, platelets 339, sodium 137 with a potassium of 4.3, BUN is 5 and creatinine is 0.7, lactic acid on admission was 2.2 with repeat 1.2 after fluid hydration liver functions within normal limits amylase 65, lipase 117, urinalysis was negative and hCG was not detected, virology testing including RSV, influenza, COVID are all negative. Patient underwent CT abdomen pelvis with a suspected uterine fibroid and no suspicious abnormality to account for patient's abdominal symptoms. Gallbladder ultrasound was performed showing cholelithiasis with a dilated common bile duct of 0.9 cm. Patient did have a complex area seen in the right ovary measuring 1.6 x 1.7 x 1.4 cm. DOG FOOD SHREDDER OPERATOR was consulted along with general surgery and patient was admitted for further evaluation. HIDA scan ordered and pending at this time REVIEW OF SYSTEMS: CONSTITUTIONAL: No fever, no malaise, reports of fatigue. HEENT: No recent visual problems or hearing problems. Denied any sore throat. CARDIOVASCULAR: No chest pain, orthopnea, PND, no palpitations, no syncope. PULMONARY: No shortness of breath, no cough, no hemoptysis. GASTROINTESTINAL: No diarrhea, reports of nausea, reports of previous vomiting, reports diffuse abdominal pain. NEUROLOGICAL: No headaches, no weakness, no numbness. HEMATOLOGICAL: Denies any bleeding or petechiae. GENITOURINARY: Denies any burning micturition, frequency, or urgency. MUSCULOSKELETAL/RHEUMATOLOGICAL: Denies any joint pain, swelling, or any muscle pain. ENDOCRINE: Denies any polyuria or polydipsia. The rest of the 14-point review of systems is negative. PHYSICAL EXAMINATION: GENERAL: The patient is alert and oriented x3, not in any acute distress. Well developed, well nourished. HEENT: Pupils are round and equally reacting to light. EOMI. No scleral icterus. No conjunctival pallor. Normocephalic, atraumatic. No pharyngeal erythema. No thyromegaly. CARDIOVASCULAR: S1 and S2 muffled, tachycardic PULMONARY: Chest is clear to auscultation, no wheezing or crackles. ABDOMEN: Soft, tenderness noted of the right and left upper quadrants, nondistended, normoactive bowel sounds. No palpable organomegaly. MUSCULOSKELETAL: No joint swelling or deformity. EXTREMITIES: No cyanosis, clubbing, or pedal edema. NEUROLOGICAL: Gross neurological examination did not reveal any focal deficits. SKIN: No rashes. Assessment: Abdominal pain with nausea and vomiting possibly secondary to cholelithiasis History of SVT, currently sinus tach Fevers with elevated white count with concerns of sepsis, present on admission possibly secondary to gallstones Lactic acidosis, present on admission after IV hydration Recent unprotected sex with concerns of possible STD Continued ongoing nicotine dependence History of anxiety/depression History of hypertension, currently normotensive GI prophylaxis DVT prophylaxis Full code Plan: Patient was admitted with general surgery and gynecology consulted as there was an abnormal finding of the right ovary. Patient's last menstrual period started 12/18/2024. Patient reports she recently had unprotected sex and concern of possible STD and orders placed and pending per gynecology Gallstones noted on imaging and HIDA scan ordered per general surgery. Dr. Beltran to evaluate Recommend telemetry monitoring. Hold home dose of lisinopril as patient is currently on the softer side of blood pressure and will be monitored closely Resume other appropriate home medications Patient to continue n.p.o. for now while awaiting test results and HIDA scan Repeat labs ordered for a.m. encouraged increased activity as tolerated The impression and plan of care has been dictated by Jayda Isabel, Nurse Practitioner as directed. Dr. Christopher MD I have performed a history and examination and MDM of this patient, discussed the same with the dictator, and agree with the dictator's assessment and plan as written ,documented as a scribe. Based on total visit time, I have performed more than 50% of the visit. Past Medical History Past Medical History: Hypertension, Supraventricular Tachycardia (SVT) Additional Past Medical History / Comment(s): tachycardia, svt History of Any Multi-Drug Resistant Organisms: None Reported Past Surgical History: Section Additional Past Surgical History / Comment(s): Debridement of right ankle and foot wounds Past Anesthesia/Blood Transfusion Reactions: No Reported Reaction Past Psychological History: No Psychological Hx Reported Smoking Status: Never smoker Past Alcohol Use History: Occasional Past Drug Use History: None Reported - Past Family History Father History Unknown: Yes Mother Family Medical History: COPD, Rheumatoid Arthritis (RA) Medications and Allergies Home Medications Medication Instructions Recorded Confirmed Type lisinopriL [Prinivil] 10 mg PO DAILY #30 tab 08/12/21 12/22/24 Rx ALPRAZolam [Xanax] 0.25 mg PO DAILY PRN 12/22/24 12/22/24 History FLUoxetine HCL [PROzac] 20 mg PO DAILY 12/22/24 12/22/24 History Allergies Allergy/AdvReac Type Severity Reaction Status Date / Time No Known Allergies Allergy Verified 12/22/24 14:17 Physical Exam Vitals: Vital Signs Temp Pulse Pulse Resp BP BP Pulse Ox 12/23/24 09:02 95/60 12/23/24 07:29 97.8 F 93 16 93/59 99 12/23/24 07:27 68 16 103/70 98 12/23/24 05:16 98.6 F 95 16 103/70 100 12/23/24 02:08 100.0 F H 120 H 18 89/52 98 12/22/24 22:08 113 H 16 107/67 97 12/22/24 18:59 114 H 18 101/69 97 12/22/24 15:49 98.9 F 114 H 18 118/71 98 12/22/24 13:42 100 F H 111 H 18 121/77 96 Results CBC & Chem 7: 12/22/24 11:29 12/22/24 11:29 Labs: Abnormal Lab Results - Last 24 Hours (Table) 12/22/24 12/22/24 12/22/24 Range/Units 11:29 11:29 11:29 WBC 12.40 H (4.50-10.00) 10*3/uL Hgb 9.6 L (12.0-15.0) g/dL Hct 32.1 L (37.2-46.3) % MCV 72.1 L (80.0-97.0) fL MCH 21.6 L (27.0-32.0) pg MCHC 29.9 L (32.0-37.0) g/dL Neutrophils # 11.70 H (1.80-7.70) 10*3/uL Lymphocytes # 0.31 L (0.90-5.00) 10*3/uL Eosinophils # 0.00 L (0.04-0.35) 10*3/uL Carbon Dioxide 19 L (22-30) mmol/L BUN 5 L (7-17) mg/dL Plasma Lactic Acid Ace 2.2 H* (0.7-2.0) mmol/L
[2024-12-24 07:59] LABS: HCT 24.8 % (37.2-46.3); HGB 7.3 g/dL (12.0-15.0); MCH 21.3 pg (27.0-32.0); MCHC 29.4 g/dL (32.0-37.0); MCV 72.5 FL (80.0-97.0); Mean Platelet Volume 10.4 FL (9.5-12.2); NRBC Per 100 WBC 0 X 10*3/uL (0.00-0.01); Platelet Count 278 X 10*3/uL (140-440); RBC 3.42 X 10*6/uL (4.10-5.20); RDW 17.1 % (11.5-14.5); WBC 16.49 X 10*3/uL (4.50-10.00)
[2024-12-24 09:32] LABS: Basophils # (A) 0.04 X 10*3/uL (0.00-0.10); Basophils % (A) 0.2 %; Eosinophils # (A) 0.08 X 10*3/uL (0.04-0.35); Eosinophils % (A) 0.5 %; Lymphocytes # (A) 0.64 X 10*3/uL (0.90-5.00); Lymphocytes % (A) 3.9 %; Microcytosis (M) 2+ (None Seen); Monocytes # (A) 0.57 X 10*3/uL (0.20-1.00); Monocytes % (A) 3.5 %; Neutrophils # (A) 14.96 X 10*3/uL (1.80-7.70); Neutrophils % (A) 90.7 %
[2024-12-24] MEDS: PANTOPRAZOLE 40 MG/10 ML VIAL IVP SCH (10:11)
[2024-12-24 10:35] LABS: ALT 11 U/L (8-44); AST 16 U/L (13-35); Albumin 2.9 g/dL (3.8-4.9); Albumin/Globulin Ratio 1.93 Ratio (1.60-3.17); Alkaline Phosphatase 50 U/L (41-126); BUN/Creat Ratio 10.86 Ratio (12.00-20.00); Bilirubin, Conjugated <0.20 mg/dL (0.20-0.40); Blood Urea Nitrogen 7.6 mg/dL (9.0-27.0); Calcium 7.5 mg/dL (8.7-10.3); Carbon Dioxide 22.1 mmol/L (21.6-31.8); Chloride 107 mmol/L (96-109); Globulin 1.5 g/dL (1.6-3.3); Glucose 76 mg/dL (70-110); Potassium 2.9 mmol/L (3.5-5.5); Sodium 138 mmol/L (135-145); Total Bilirubin <0.2 mg/dL (0.3-1.2); Total Protein 4.4 g/dL (6.2-8.2)
[2024-12-24] MEDS: ONDANSETRON 4 MG/2 ML VIAL IVP PRN (13:04)
[2024-12-24] MEDS ORDERED: Potassium Replacement Protocol 1 EACH MISC MISCELLANE PRN (13:25)
[2024-12-24] MEDS: POTASSIUM CHLORIDE ER 20 MEQ TAB.ER PO SCH ×2 (13:44→19:00)
[2024-12-24 14:56] LABS: C. trachomatis,PCR Negative (Negative); N. gonorrhoeae,PCR Negative (Negative)
--- NOTE | 2024-12-24 15:07 | P.PN ---
Subjective Progress Note Date: 12/24/24 SURGICAL PROGRESS NOTE CHIEF COMPLAINT: Abdominal pain HISTORY OF PRESENT ILLNESS: Patient with right upper quadrant and epigastric abdominal pain. Patient had positive HIDA scan with cystic duct obstruction. Afebrile. Tachycardia improved. WBC is up from 12-16 Hgb 7.3 platelets 278 potassium 2.9 creatinine 0.7 lactic acid 0.8 LFTs normal PHYSICAL EXAM: VITAL SIGNS: Reviewed. GENERAL: Well-developed in no acute distress. ABDOMEN: Soft. Nondistended. Tenderness palpation right upper quadrant and epigastric area NEUROLOGIC: Alert and oriented. Cranial nerves II through XII grossly intact. ASSESSMENT: 1. Acute cholecystitis with gallbladder ultrasound noting cholelithiasis and a dilated CBD 2. Sepsis present on admission PLAN: - Patient scheduled for laparoscopic cholecystectomy tomorrow with Dr. Quiñonez - Clear liquid diet today - N.p.o. after midnight - Continue antibiotics - Medicine service replacing potassium Physician Personal Secretary note has been reviewed by physician. Signing provider agrees with the documented findings, assessment, and plan of care. Attestation Patient seen and examined at bedside on 12/24/2024. Present with chief complaint of abdominal pain and HIDA scan was performed with noticeable cystic duct obstruction. White count however did not increased. Patient is to be n.p.o. after midnight and continue IV antibiotics with anticipated laparoscopic c holecystectomy. Arabella Gonzalez DO Objective - Vital Signs Vital signs: Vital Signs Temp 97.6 F 12/24/24 13:15 Pulse 78 12/24/24 13:15 Resp 16 12/24/24 13:15 BP 129/86 12/24/24 13:15 Pulse Ox 99 12/24/24 13:15 FiO2 Intake & Output 12/23/24 12/24/24 12/24/24 18:59 06:59 18:59 Other: Voiding Method Toilet Toilet # Voids 3 4 - Labs CBC & Chem 7: 12/25/24 07:41 12/25/24 07:41 Labs: Abnormal Lab Results - Last 24 Hours (Table) 12/24/24 12/24/24 Range/Units 05:58 05:58 WBC 16.49 H (4.50-10.00) X 10*3/uL RBC 3.42 L (4.10-5.20) X 10*6/uL Hgb 7.3 L (12.0-15.0) g/dL Hct 24.8 L (37.2-46.3) % MCV 72.5 L (80.0-97.0) FL MCH 21.3 L (27.0-32.0) pg MCHC 29.4 L (32.0-37.0) g/dL RDW 17.1 H (11.5-14.5) % Immature Gran # 0.20 H (0.00-0.04) X 10*3/uL Neutrophils # 14.96 H (1.80-7.70) X 10*3/uL Lymphocytes # 0.64 L (0.90-5.00) X 10*3/uL Microcytosis (manual) 2+ A (None Seen) Potassium 2.9 L (3.5-5.5) mmol/L BUN 7.6 L (9.0-27.0) mg/dL BUN/Creatinine Ratio 10.86 L (12.00-20.00) Ratio Calcium 7.5 L (8.7-10.3) mg/dL Total Bilirubin <0.2 L (0.3-1.2) mg/dL Total Protein 4.4 L (6.2-8.2) g/dL Albumin 2.9 L (3.8-4.9) g/dL Globulin 1.5 L (1.6-3.3) g/dL Microbiology - Last 24 Hours (Table) 12/23/24 13:22 Genital Culture - Preliminary Cervix 12/22/24 11:29 Blood Culture - Preliminary Blood
[2024-12-24] MEDS: POTASSIUM CHLORIDE ER 20 MEQ TAB.ER PO ONE (15:51)
[2024-12-24] MEDS: METOCLOPRAMIDE 5 MG/ML 2 ML VIAL IVP PRN (17:25)
[2024-12-24 18:14] LABS: Prothrombin Time 11.1 sec (10.0-12.5)
[2024-12-24] MEDS ORDERED: LOPERAMIDE 2 MG CAP PO PRN (21:07)
--- NOTE | 2024-12-24 22:34 | P.PN ---
Subjective Progress Note Date: 12/24/24 This is a pleasant 39-year-old female who presented to the emergency department with nausea and vomiting along with epigastric abdominal pain. Patient follows with Dr. Aaron mcintyre, SVT. Patient reports she recently had unprotected sex and has been having some diffuse abdominal and lower pelvic tenderness. Labs reviewed with a white count of 12.4, hemoglobin 9.6, platelets 339, sodium 137 with a potassium of 4.3, BUN is 5 and creatinine is 0.7, lactic acid on admission was 2.2 with repeat 1.2 after fluid hydration liver functions within normal limits amylase 65, lipase 117, urinalysis was negative and hCG was not detected, virology testing including RSV, influenza, COVID are all negative. Patient underwent CT abdomen pelvis with a suspected uterine fibroid and no suspicious abnormality to account for patient's abdominal symptoms. Gallbladder ultrasound was performed showing cholelithiasis with a dilated common bile duct of 0.9 cm. Patient did have a complex area seen in the right ovary measuring 1.6 x 1.7 x 1.4 cm. CREDIT PRODUCT ANALYST was consulted along with general surgery and patient was admitted for further evaluation. HIDA scan ordered and pending at this time 12/24/2024 Patient seen and evaluated in follow-up reports to feeling slightly improved although continues with abdominal discomfort having intermittent nausea and reports to having multiple episodes of loose stools. Patient has been maintained on antibiotics and will obtain a C. difficile and if negative okay for Imodium. Patient currently n.p.o. except medications and tentatively scheduled for acute cholecystectomy. HIDA scan was suggestive of cystic duct obstruction. Potassium on the lower side and currently 2.9 and being replaced per protocol. Hemoglobin is slightly low at 7.3 with no active bleeding noted and will monitor closely. White count remains elevated at 16.49. Patient did have an isolated low-grade temp of 99.2 today. Will follow-up on repeat labs and continue n.p.o. and await surgical report. Review of systems: Constitutional: No reports of fatigue, fever, or chills Cardiovascular: No reports of chest pain or palpitations Respiratory: No reports of shortness of breath or cough GI: reports of intermittent nausea, no vomiting, reports multiple episodes of loose stools : No reports of dysuria or retention Neurovascular: No reports of weakness or numbness All medications have been reviewed PHYSICAL EXAMINATION: GENERAL: The patient is alert and oriented x3, not in any acute distress. Well developed, well nourished. HEENT: Pupils are round and equally reacting to light. EOMI. No scleral icterus. No conjunctival pallor. Normocephalic, atraumatic. No pharyngeal erythema. No thyromegaly. CARDIOVASCULAR: S1 and S2 muffled, tachycardic PULMONARY: Chest is clear to auscultation, no wheezing or crackles. ABDOMEN: Soft, tenderness noted of the right and left upper quadrants, nondistended, normoactive bowel sounds. No palpable organomegaly. MUSCULOSKELETAL: No joint swelling or deformity. EXTREMITIES: No cyanosis, clubbing, or pedal edema. NEUROLOGICAL: Gross neurological examination did not reveal any focal deficits. SKIN: No rashes. Assessment: Abdominal pain with nausea and vomiting possibly secondary to cholelithiasis History of SVT, currently sinus tach Fevers with elevated white count with sepsis, present on admission likely secondary to cystic duct obstruction Lactic acidosis, present on admission, improved after IV hydration Recent unprotected sex with concerns of possible STD Continued ongoing nicotine dependence History of anxiety/depression History of hypertension, currently normotensive GI prophylaxis DVT prophylaxis Full code Plan: Patient was admitted with general surgery and gynecology consulted as there was an abnormal finding of the right ovary. Patient's last menstrual period started 12/18/2024. Patient reports she recently had unprotected sex and concern of possible STD and orders placed and pending per gynecology. Patient to follow-up with gynecology outpatient and cultures thus far pending Gallstones noted on imaging and HIDA scan positive for cystic duct obstruction. Plan is for acute cholecystectomy with general surgery on 12/25/2024 Recommend telemetry monitoring. Hold home dose of lisinopril as patient is currently on the softer side of blood pressure and will be monitored closely Patient is reporting multiple episodes of loose stools and has been on antibiotics will obtain C. difficile and if negative okay for Imodium Resume other appropriate home medications Patient to continue n.p.o. for now until surgery Repeat labs ordered for a.m. encouraged increased activity as tolerated The impression and plan of care has been dictated by Jayda Isabel, Nurse Practitioner as directed. Dr. Christopher MD I have performed a history and examination and MDM of this patient, discussed the same with the dictator, and agree with the dictator's assessment and plan as written ,documented as a scribe. Based on total visit time, I have performed more than 50% of the visit. Objective - Vital Signs Vital signs: Vital Signs Temp 98.9 F 12/24/24 02:20 Pulse 101 H 12/24/24 02:20 Resp 16 12/24/24 02:20 BP 122/74 12/24/24 02:20 Pulse Ox 98 12/24/24 02:20 FiO2 Intake & Output 12/23/24 12/23/24 12/24/24 06:59 18:59 06:59 Weight 64.864 kg Other: Voiding Method Toilet # Voids 3 - Labs CBC & Chem 7: 12/24/24 05:58 12/24/24 17:57 Labs: Microbiology - Last 24 Hours (Table) 12/22/24 11:29 Blood Culture - Preliminary Blood
[2024-12-25] MEDS: VANCOMYCIN 125 MG CAPSULE PO SCH (03:41)
[2024-12-25] MEDS: POTASSIUM CHLORIDE ER 20 MEQ TAB.ER PO SCH (03:42)
[2024-12-25 08:06] LABS: Basophils # (A) 0.06 10*3/uL (0.00-0.10); Basophils % (A) 0.4 %; Eosinophils # (A) 0.07 10*3/uL (0.04-0.35); Eosinophils % (A) 0.5 %; Lymphocytes # (A) 0.82 10*3/uL (0.90-5.00); MCH 21.4 pg (27.0-32.0); MCHC 29.6 g/dL (32.0-37.0); MCV 72.4 fL (80.0-97.0); Mean Platelet Volume 9.9 fL (9.5-12.2); Monocytes # (A) 0.95 10*3/uL (0.20-1.00); Neutrophils # (A) 11.58 10*3/uL (1.80-7.70); Neutrophils % (A) 85.1 %; Platelet Count 294 10*3/uL (140-440); RBC 3.59 10*6/uL (4.10-5.20); RDW 16.9 % (11.5-14.5); WBC 13.61 10*3/uL (4.50-10.00)
[2024-12-25 08:10] LABS: HGB 7.7 g/dL (12.0-15.0)
[2024-12-25] MEDS: POTASSIUM CHLORIDE ER 20 MEQ TAB.ER PO STA (08:15)
[2024-12-25 08:20] LABS: African American GFR (CKD) >90 (>60 ml/min/1.73 sqM); Anion Gap 6 mmol/L; Blood Urea Nitrogen 2 mg/dL (7-17); Calcium 8.1 mg/dL (8.4-10.2); Carbon Dioxide 20 mmol/L (22-30); Chloride 109 mmol/L (98-107); Glucose 76 mg/dL (74-99); Non-African American GFR(CKD) >90 (>60 ml/min/1.73 sqM); Potassium 3.4 mmol/L (3.5-5.1); Sodium 135 mmol/L (137-145)
[2024-12-25] MEDS: lisinopriL 10 MG TAB PO SCH (10:27)
[2024-12-25] MEDS: lisinopriL 10 MG TAB PO STA (11:31)
[2024-12-25] MEDS: SODIUM CHLORIDE 0.9% 1,000 ML IV SCH (12:42)
--- NOTE | 2024-12-25 15:44 | P.PN ---
Subjective Progress Note Date: 12/25/24 SURGICAL PROGRESS NOTE CHIEF COMPLAINT: Abdominal pain HISTORY OF PRESENT ILLNESS: Patient reports she is feeling better. Her abdominal pain is less. She tolerated a low-fat diet. She did have 4 episodes of diarrhea this morning. She was found to have evidence of C. difficile colitis. Surgery for today was canceled. Afebrile. WBC is down from 16-13 Hgb 7.7 potassium 3.4 vaginal culture positive for presumptive Staph aureus PHYSICAL EXAM: VITAL SIGNS: Reviewed. GENERAL: Well-developed in no acute distress. ABDOMEN: Soft. Nondistended. Tenderness palpation right upper quadrant and epigastric area NEUROLOGIC: Alert and oriented. Cranial nerves II through XII grossly intact. ASSESSMENT: 1. Acute cholecystitis with gallbladder ultrasound noting cholelithiasis and a dilated CBD. HIDA with cystic duct obstruction 2. Sepsis present on admission PLAN: -Surgery canceled today due to positive C. difficile colitis -Continue a low-fat diet -Antibiotic and C. difficile management per infectious disease -Cholecystectomy can be completed outpatient -Would recommend continuing IV fluids normal saline at 75 mL/h -Replace potassium -Patient can be discharged from surgical standpoint when cleared by infectious disease Physician Hadoop Admin note has been reviewed by physician. Signing provider agrees with the documented findings, assessment, and plan of care. Objective - Vital Signs Vital signs: Vital Signs Temp 98.8 F 12/25/24 07:30 Pulse 86 12/25/24 07:30 Resp 16 12/25/24 07:30 BP 152/94 12/25/24 07:30 Pulse Ox 99 12/25/24 07:30 FiO2 Intake & Output 12/24/24 12/25/24 12/25/24 18:59 06:59 18:59 Intake Total 240 240 Balance 240 240 Intake: Oral 240 240 Other: Voiding Method Toilet Toilet Toilet # Voids 5 3 # Bowel Movements 4 2 - Labs CBC & Chem 7: 12/25/24 07:41 12/25/24 07:41 Labs: Abnormal Lab Results - Last 24 Hours (Table) 12/24/24 12/24/24 12/25/24 Range/Units 17:57 21:59 00:42 WBC (4.50-10.00) 10*3/uL RBC (4.10-5.20) 10*6/uL Hgb (12.0-15.0) g/dL Hct (37.2-46.3) % MCV (80.0-97.0) fL MCH (27.0-32.0) pg MCHC (32.0-37.0) g/dL RDW (11.5-14.5) % Immature Gran # (0.00-0.04) 10*3/uL Neutrophils # (1.80-7.70) 10*3/uL Lymphocytes # (0.90-5.00) 10*3/uL Sodium (137-145) mmol/L Potassium 3.0 L 3.2 L (3.5-5.1) mmol/L Chloride (98-107) mmol/L Carbon Dioxide (22-30) mmol/L BUN (7-17) mg/dL Calcium (8.4-10.2) mg/dL C. difficile (EIA) Intrp Positive A (Negative) 12/25/24 12/25/24 Range/Units 07:41 07:41 WBC 13.61 H (4.50-10.00) 10*3/uL RBC 3.59 L (4.10-5.20) 10*6/uL Hgb 7.7 L D (12.0-15.0) g/dL Hct 26.0 L (37.2-46.3) % MCV 72.4 L (80.0-97.0) fL MCH 21.4 L (27.0-32.0) pg MCHC 29.6 L (32.0-37.0) g/dL RDW 16.9 H (11.5-14.5) % Immature Gran # 0.13 H (0.00-0.04) 10*3/uL Neutrophils # 11.58 H (1.80-7.70) 10*3/uL Lymphocytes # 0.82 L (0.90-5.00) 10*3/uL Sodium 135 L (137-145) mmol/L Potassium 3.4 L (3.5-5.1) mmol/L Chloride 109 H (98-107) mmol/L Carbon Dioxide 20 L (22-30) mmol/L BUN 2 L (7-17) mg/dL Calcium 8.1 L (8.4-10.2) mg/dL C. difficile (EIA) Intrp (Negative) Microbiology - Last 24 Hours (Table) 12/23/24 13:22 Genital Culture - Preliminary Cervix Presumptive Staph aureus 12/22/24 11:29 Blood Culture - Preliminary Blood Assessment and Plan Assessment: original plan for OR canceled 2/2 c. diff colitis and peripheral infection defer to medicine vs ID regarding treatment no OR, can follow up outpatient for elective cholecystectomy Time with Patient: Less than 30
[2024-12-25] MEDS: CEFDINIR 300 MG CAP PO SCH (21:24)
--- NOTE | 2024-12-25 23:55 | P.CONS ---
History of Present Illness - Reason for Consult Consult date: 12/25/24 Cholelithiasis sepsis C. difficile Staph aureus on vaginal culture Requesting physician: Jayda Isabel - Chief Complaint Abdominal pain x 1 day on admission - History of Present Illness Patient is a 39-year-old female past medical history pertinent for hypertension SVT presenting to the hospital 3 days ago for abdominal pain which apparently started the morning of presentation the hospital pain has been mostly in the epigastric area sudden sharp pain onset moderate intensity with associated nausea and vomiting patient did not have any diarrhea on presentation to the hospital on presentation to hospital the patient did have a temperature of 101.9 F patient was tachycardic but not hypotensive or hypoxic no need for supplemental oxygen patient did have a white count of 12.40 which was up to 16.49 though slightly down to 13.61 today creatinine has been normal potassium is 3.4 patient did have abdominal pelvis CT no suspicious abnormality suspected uterine fibroid she did have a gallbladder ultrasound cholelithiasis dilated common bile duct HIDA scan findings are compatible with cystic duct obstruction patient was supposed to go for cholecystectomy however she developed diarrhea stool for C. difficile came back positive and surgery was put on hold he was started on oral vancomycin infectious disease was consulted today regarding colitis is sepsis and C. difficile patient at time my evaluation denies having any fever or any chills patient did have improvement to the abdominal pain no further nausea vomiting has been complaining of diarrhea that apparently started the day after presentation of the hospital with multiple loose stool but overall decrease in frequency of the stools patient also have unprotected sex for the patient has been seen by DATA REDUCTION TECHNICIAN patient did have chlamydia and gonorrhea for which has been negative did have transvaginal ultrasound which did mention complex area within the right ovary fluid and debris's within the endometrial canal location is somewhat unclear she did have a cervical cultures obtained by the DATA REDUCTION TECHNICIAN now growing Staph aureus with sensitivities pending Review of Systems Positive point and negatives has been mentioned in the HPI, complete review of systems was performed and all other systems are negative Past Medical History Past Medical History: Hypertension, Supraventricular Tachycardia (SVT) Additional Past Medical History / Comment(s): tachycardia, svt History of Any Multi-Drug Resistant Organisms: None Reported Past Surgical History: Section Additional Past Surgical History / Comment(s): Debridement of right ankle and foot wounds Past Anesthesia/Blood Transfusion Reactions: No Reported Reaction Past Psychological History: No Psychological Hx Reported Smoking Status: Never smoker Past Alcohol Use History: Occasional Past Drug Use History: None Reported - Past Family History Father History Unknown: Yes Mother Family Medical History: COPD, Rheumatoid Arthritis (RA) Medications and Allergies Home Medications Medication Instructions Recorded Confirmed Type lisinopriL [Prinivil] 10 mg PO DAILY #30 tab 08/12/21 12/22/24 Rx ALPRAZolam [Xanax] 0.25 mg PO DAILY PRN 12/22/24 12/22/24 History FLUoxetine HCL [PROzac] 20 mg PO DAILY 12/22/24 12/22/24 History Allergies Allergy/AdvReac Type Severity Reaction Status Date / Time No Known Allergies Allergy Verified 12/22/24 14:17 Physical Exam Vitals: Vital Signs Temp Pulse Resp BP BP Pulse Ox 12/25/24 07:30 98.8 F 86 16 152/94 99 12/25/24 00:01 98.5 F 88 16 130/88 98 12/24/24 19:22 98.1 F 89 17 130/86 97 12/24/24 13:15 97.6 F 78 16 129/86 99 Intake and Output 12/24/24 12/25/24 12/25/24 22:59 06:59 14:59 Intake Total 240 Balance 240 Intake: Oral 240 Other: Voiding Method Toilet Toilet # Voids 5 3 # Bowel Movements 4 2 GENERAL DESCRIPTION: Middle-age female up in a chair, no distress. No tachypnea or accessory muscle of respiration use. HEENT: Shows Pallor , no scleral icterus. Oral mucous membrane is dry. NECK: Trachea central, no thyromegaly. LUNGS: Unlabored breathing. Clear to auscultation anteriorly. No wheeze or crackle. HEART: S1, S2, regular rate and rhythm. No loud murmur ABDOMEN: Soft, no tenderness , guarding or rigidity, no organomegaly EXTREMITIES: No edema of feet. SKIN: No rash, no masses palpable. NEUROLOGICAL: The patient is awake, alert, oriented x3, mood and affect normal. Results CBC & Chem 7: 12/25/24 07:41 12/25/24 07:41 Labs: Abnormal Lab Results - Last 24 Hours (Table) 12/24/24 12/24/24 12/25/24 Range/Units 17:57 21:59 00:42 WBC (4.50-10.00) 10*3/uL RBC (4.10-5.20) 10*6/uL Hgb (12.0-15.0) g/dL Hct (37.2-46.3) % MCV (80.0-97.0) fL MCH (27.0-32.0) pg MCHC (32.0-37.0) g/dL RDW (11.5-14.5) % Immature Gran # (0.00-0.04) 10*3/uL Neutrophils # (1.80-7.70) 10*3/uL Lymphocytes # (0.90-5.00) 10*3/uL Sodium (137-145) mmol/L Potassium 3.0 L 3.2 L (3.5-5.1) mmol/L Chloride (98-107) mmol/L Carbon Dioxide (22-30) mmol/L BUN (7-17) mg/dL Calcium (8.4-10.2) mg/dL C. difficile (EIA) Intrp Positive A (Negative) 12/25/24 12/25/24 Range/Units 07:41 07:41 WBC 13.61 H (4.50-10.00) 10*3/uL RBC 3.59 L (4.10-5.20) 10*6/uL Hgb 7.7 L D (12.0-15.0) g/dL Hct 26.0 L (37.2-46.3) % MCV 72.4 L (80.0-97.0) fL MCH 21.4 L (27.0-32.0) pg MCHC 29.6 L (32.0-37.0) g/dL RDW 16.9 H (11.5-14.5) % Immature Gran # 0.13 H (0.00-0.04) 10*3/uL Neutrophils # 11.58 H (1.80-7.70) 10*3/uL Lymphocytes # 0.82 L (0.90-5.00) 10*3/uL Sodium 135 L (137-145) mmol/L Potassium 3.4 L (3.5-5.1) mmol/L Chloride 109 H (98-107) mmol/L Carbon Dioxide 20 L (22-30) mmol/L BUN 2 L (7-17) mg/dL Calcium 8.1 L (8.4-10.2) mg/dL C. difficile (EIA) Intrp (Negative) Microbiology - Last 24 Hours (Table) 12/23/24 13:22 Genital Culture - Preliminary Cervix Presumptive Staph aureus 12/22/24 11:29 Blood Culture - Preliminary Blood Assessment and Plan (1) Possible exposure to STD Current Visit: Yes Status: Acute Code(s): Z20.2 - CONTACT W AND EXPOSURE TO INFECT W A SEXL MODE OF TRANSMISS SNOMED Code(s): 818917708 (2) Sepsis Current Visit: Yes Status: Acute Code(s): A41.9 - SEPSIS, UNSPECIFIED ORGAN ISM SNOMED Code(s): 19250606 (3) Cholangitis Current Visit: Yes Status: Acute Code(s): K83.09 - OTHER CHOLANGITIS SNOMED Code(s): 64976044 Plan: 1patient with initial presentation to the hospital with sepsis in this patient who did have fever tachycardia elevated white count medically for SIRS source was likely ascending cholangitis in this patient who possibly has prostate gallstone as there is evidence of dilated CBD and did have abnormal HIDA scan likely organism recovered with the entirety gram-negative 2-patient also have complication as she developed diarrhea stool for C. difficile above positive that will complicate her overall care 3-patient also have unprotected sexual intercourse chlamydia and GC has been negative endocervical culture growing Staph aureus possible colonization as the patient currently denies having any vaginal drainage 4-patient need to be on a short course of antibiotic for the cholangitis hopefully will undergo laparoscopic cholecystectomy soon as prolonged antibiotic exposure will put her at high risk for worsening of her C. difficile colitis 5-I will cover the patient with oral vancomycin for the C. difficile colitis encouraged to increase her probiotic and yogurt intake 6-we will recheck her CBC to make sure the white count is normalized and she can HIV testing with a.m. lab Multiple question concern answered We will follow on clinical condition and cultures to further adjust medication if needed Thank you for this consultation we will follow the patient along with you Dictation was produced using [employer] dictation software. please excuse any grammatical, word or spelling errors. Time with Patient: Greater than 30
--- NOTE | 2024-12-26 06:00 | P.PN ---
Subjective Progress Note Date: 12/25/24 This is a pleasant 39-year-old female who presented to the emergency department with nausea and vomiting along with epigastric abdominal pain. Patient follows with Dr. Walker hypertension, T. Patient reports she recently had unprotected sex and has been having some diffuse abdominal and lower pelvic tenderness. Labs reviewed with a white count of 12.4, hemoglobin 9.6, platelets 339, sodium 137 with a potassium of 4.3, BUN is 5 and creatinine is 0.7, lactic acid on admission was 2.2 with repeat 1.2 after fluid hydration liver functions within normal limits amylase 65, lipase 117, urinalysis was negative and hCG was not detected, virology testing including RSV, influenza, COVID are all negative. Patient underwent CT abdomen pelvis with a suspected uterine fibroid and no suspicious abnormality to account for patient's abdominal symptoms. Gallbladder ultrasound was performed showing cholelithiasis with a dilated common bile duct of 0.9 cm. Patient did have a complex area seen in the right ovary measuring 1.6 x 1.7 x 1.4 cm. [facility] [facility] was consulted along with general surgery and patient was admitted for further evaluation. HIDA scan ordered and pending at this time 12/24/2024 Patient seen and evaluated in follow-up reports to feeling slightly improved although continues with abdominal discomfort having intermittent nausea and reports to having multiple episodes of loose stools. Patient has been maintained on antibiotics and will obtain a C. difficile and if negative okay for Imodium. Patient currently n.p.o. except medications and tentatively scheduled for acute cholecystectomy. HIDA scan was suggestive of cystic duct obstruction. Potassium on the lower side and currently 2.9 and being replaced per protocol. Hemoglobin is slightly low at 7.3 with no active bleeding noted and will monitor closely. White count remains elevated at 16.49. Patient did have an isolated low-grade temp of 99.2 today. Will follow-up on repeat labs and continue n.p.o. and await surgical report. 12/25/2024 Patient is seen in follow-up today was tentatively scheduled for surgery althoug h was noted to have C. difficile with multiple episodes of loose stools and being started on oral vancomycin. Patient was continued on ceftriaxone and Flagyl and white count had been trending down. Per surgery patient be started on a low fiber diet and will plan for outpatient surgical intervention once C. difficile infection has resolved. Potassium 3.4 this morning after replacement through the night and will replace upon repeat labs in AM. Patient is afebrile reports her abdominal pain is somewhat improved and reports to having approximately 6 episodes of diarrhea since last night. Will consult infectious disease and appreciate input and recommendations. Of note preliminary vaginal c ultures taken during gynecological exam on admission revealed presumptive Staph aureus and finalized culture is pending. Will await this report to determine appropriate antibiotics Review of systems: Constitutional: No reports of fatigue, fever, or chills Cardiovascular: No reports of chest pain or palpitations Respiratory: No reports of shortness of breath or cough GI: No further reports of intermittent nausea, no vomiting, reports multiple episodes of loose stools : No reports of dysuria or retention Neurovascular: No reports of weakness or numbness All medications have been reviewed PHYSICAL EXAMINATION: GENERAL: The patient is alert and oriented x3, not in any acute distress. Well developed, well nourished. HEENT: Pupils are round and equally reacting to light. EOMI. No scleral icterus. No conjunctival pallor. Normocephalic, atraumatic. No pharyngeal erythema. No thyromegaly. CARDIOVASCULAR: S1 and S2 muffled, tachycardic PULMONARY: Chest is clear to auscultation, no wheezing or crackles. ABDOMEN: Soft, tenderness noted of the right and left upper quadrants, nondisten ded, normoactive bowel sounds. No palpable organomegaly. MUSCULOSKELETAL: No joint swelling or deformity. EXTREMITIES: No cyanosis, clubbing, or pedal edema. NEUROLOGICAL: Gross neurological examination did not reveal any focal deficits. SKIN: No rashes. Assessment: Abdominal pain with nausea and vomiting possibly secondary to cholelithiasis History of SVT, currently sinus rhythm Fevers with elevated white count with sepsis, present on admission likely secondary to cystic duct obstruction, was scheduled for cholecystectomy although canceled as patient is now C. difficile positive Diarrhea, C. difficile positive Lactic acidosis, present on admission, improved after IV hydration Recent unprotected sex with concerns of possible STD, vaginal culture showing presumptive Staph aureus Continued ongoing nicotine dependence History of anxiety/depression History of hypertension, currently normotensive GI prophylaxis DVT prophylaxis Full code Plan: Patient was admitted with general surgery and gynecology consulted as there was an abnormal finding of the right ovary. Patient's last menstrual period started 12/18/2024. Patient reports she recently had unprotected sex and concern of p ossible STD and orders placed and pending per gynecology. Patient to follow-up with gynecology outpatient and vaginal cultures showing presumptive Staph aureus Gallstones noted on imaging and HIDA scan positive for cystic duct obstruction. Plan was for acute cholecystectomy with general surgery today 12/25/2024 although has been canceled as patient was found to have C. difficile Multiple episodes of diarrhea, C. difficile was obtained and is positive and started on oral Vanco. Will consult infectious disease and appreciate input and recommendations regarding antibiotic therapy and will likely also need to await vaginal culture to finalize to determine appropriate discharge antibiotics. Recommend telemetry monitoring. Resume home dose of lisinopril Patient was started on low fiber diet per surgery and tolerating well reports no abdominal pain at this time Repeat labs ordered for a.m. encouraged increased activity as tolerated The impression and plan of care has been dictated by Jayda Isabel, Nurse Practitioner as directed. Dr. Christopher MD I have performed a history and examination and MDM of this patient, discussed the same with the dictator, and agree with the dictator's assessment and plan as written ,documented as a scribe. Based on total visit time, I have performed more than 50% of the visit. Objective - Vital Signs Vital signs: Vital Signs Temp 98.8 F 12/25/24 07:30 Pulse 86 12/25/24 07:30 Resp 16 12/25/24 07:30 BP 152/94 12/25/24 07:30 Pulse Ox 99 12/25/24 07:30 FiO2 Intake & Output 12/24/24 12/25/24 12/25/24 18:59 06:59 18:59 Intake Total 240 240 Balance 240 240 Intake: Oral 240 240 Other: Voiding Method Toilet Toilet Toilet # Voids 5 3 # Bowel Movements 4 2 - Labs CBC & Chem 7: 12/25/24 07:41 12/25/24 07:41 Labs: Abnormal Lab Results - Last 24 Hours (Table) 12/24/24 12/24/24 12/24/24 Range/Units 05:58 17:57 21:59 WBC (4.50-10.00) 10*3/uL RBC (4.10-5.20) 10*6/uL Hgb (12.0-15.0) g/dL Hct (37.2-46.3) % MCV (80.0-97.0) fL MCH (27.0-32.0) pg MCHC (32.0-37.0) g/dL RDW (11.5-14.5) % Immature Gran # (0.00-0.04) 10*3/uL Neutrophils # (1.80-7.70) 10*3/uL Lymphocytes # (0.90-5.00) 10*3/uL Sodium (137-145) mmol/L Potassium 2.9 L 3.0 L (3.5-5.5) mmol/L Chloride (98-107) mmol/L Carbon Dioxide (22-30) mmol/L BUN 7.6 L (9.0-27.0) mg/dL BUN/Creatinine Ratio 10.86 L (12.00-20.00) Ratio Calcium 7.5 L (8.7-10.3) mg/dL Total Bilirubin <0.2 L (0.3-1.2) mg/dL Total Protein 4.4 L (6.2-8.2) g/dL Albumin 2.9 L (3.8-4.9) g/dL Globulin 1.5 L (1.6-3.3) g/dL C. difficile (EIA) Intrp Positive A (Negative) 12/25/24 12/25/24 12/25/24 Range/Units 00:42 07:41 07:41 WBC 13.61 H (4.50-10.00) 10*3/uL RBC 3.59 L (4.10-5.20) 10*6/uL Hgb 7.7 L D (12.0-15.0) g/dL Hct 26.0 L (37.2-46.3) % MCV 72.4 L (80.0-97.0) fL MCH 21.4 L (27.0-32.0) pg MCHC 29.6 L (32.0-37.0) g/dL RDW 16.9 H (11.5-14.5) % Immature Gran # 0.13 H (0.00-0.04) 10*3/uL Neutrophils # 11.58 H (1.80-7.70) 10*3/uL Lymphocytes # 0.82 L (0.90-5.00) 10*3/uL Sodium 135 L (137-145) mmol/L Potassium 3.2 L 3.4 L (3.5-5.5) mmol/L Chloride 109 H (98-107) mmol/L Carbon Dioxide 20 L (22-30) mmol/L BUN 2 L (9.0-27.0) mg/dL BUN/Creatinine Ratio (12.00-20.00) Ratio Calcium 8.1 L (8.7-10.3) mg/dL Total Bilirubin (0.3-1.2) mg/dL Total Protein (6.2-8.2) g/dL Albumin (3.8-4.9) g/dL Globulin (1.6-3.3) g/dL C. difficile (EIA) Intrp (Negative) Microbiology - Last 24 Hours (Table) 12/22/24 11:29 Blood Culture - Preliminary Blood 12/23/24 13:22 Genital Culture - Preliminary Cervix
[2024-12-26 07:31] VITALS: PULSE 88
--- NOTE | 2024-12-26 07:43 | XR ---
EXAMINATION TYPE: XR chest 1V portable DATE OF EXAM: 12/26/2024 7:34 AM COMPARISON: Chest radiographs from 09/30/2023. CLINICAL INDICATION: Female, 39 years old with history of shortness of breath; TECHNIQUE: XR chest 1V portable Frontal view of the chest. FINDINGS: Lungs/Pleura: There is no evidence of pleural effusion, focal consolidation, or pneumothorax. Pulmonary vascularity: Unremarkable. Heart/mediastinum: Cardiomediastinal silhouette is unremarkable. Musculoskeletal: No acute osseous pathology. IMPRESSION: Mild pulmonary edema with bilateral reticular opacities. [facility], , 12/26/2024 7:41 AM
[2024-12-26 08:22] LABS: Basophils # (A) 0.03 10*3/uL (0.00-0.10); Basophils % (A) 0.3 %; HCT 26.2 % (37.2-46.3); HGB 7.6 g/dL (12.0-15.0); Lymphocytes # (A) 0.93 10*3/uL (0.90-5.00); Lymphocytes % (A) 8.9 %; MCH 20.8 pg (27.0-32.0); MCV 71.6 fL (80.0-97.0); Mean Platelet Volume 10.1 fL (9.5-12.2); Monocytes # (A) 0.99 10*3/uL (0.20-1.00); Monocytes % (A) 9.5 %; Neutrophils # (A) 8.24 10*3/uL (1.80-7.70); Neutrophils % (A) 78.8 %; Platelet Count 325 10*3/uL (140-440); RBC 3.66 10*6/uL (4.10-5.20); RDW 17.2 % (11.5-14.5); WBC 10.45 10*3/uL (4.50-10.00)
[2024-12-26 08:40] LABS: ALT 12 U/L (4-34); AST 23 U/L (14-36); African American GFR (CKD) >90 (>60 ml/min/1.73 sqM); Albumin 2.9 g/dL (3.5-5.0); Albumin/Globulin Ratio 1.4; Alkaline Phosphatase 66 U/L (38-126); Anion Gap 6 mmol/L; Blood Urea Nitrogen <2 mg/dL (7-17); Carbon Dioxide 21 mmol/L (22-30); Chloride 110 mmol/L (98-107); Globulin 2.1 g/dL; Glucose 97 mg/dL (74-99); Non-African American GFR(CKD) >90 (>60 ml/min/1.73 sqM); Potassium 3.5 mmol/L (3.5-5.1); Sodium 137 mmol/L (137-145); Total Bilirubin 0.3 mg/dL (0.2-1.3)
[2024-12-26 09:06] LABS: C Reactive Protein 7.6 mg/dL (<1.0)
--- NOTE | 2024-12-26 12:14 | P.PN ---
Subjective Patient seen and evaluated bedside denies abdominal pain nausea vomiting fevers chills shortness of breath or chest pain Objective - Vital Signs Vital signs: Vital Signs Temp 98.7 F 12/26/24 07:29 Pulse 88 12/26/24 09:32 Resp 17 12/26/24 07:29 BP 144/96 12/26/24 07:29 Pulse Ox 95 12/26/24 07:29 FiO2 Intake & Output 12/25/24 12/26/24 12/26/24 18:59 06:59 18:59 Intake Total 830 444 Balance 830 444 Intake: Oral 830 444 Other: Voiding Method Toilet Toilet # Voids 1 2 # Bowel Movements 1 - Exam General No acute distress alert and oriented x 3 Cardiovascular regular rhythm Pulmonary nonlabored breathing Abdomen soft nontender nondistended no guarding rebound tenderness - Labs CBC & Chem 7: 12/26/24 07:44 12/26/24 07:44 Labs: Abnormal Lab Results - Last 24 Hours (Table) 12/26/24 12/26/24 Range/Units 07:44 07:44 WBC 10.45 H (4.50-10.00) 10*3/uL RBC 3.66 L (4.10-5.20) 10*6/uL Hgb 7.6 L (12.0-15.0) g/dL Hct 26.2 L (37.2-46.3) % MCV 71.6 L (80.0-97.0) fL MCH 20.8 L (27.0-32.0) pg MCHC 29.0 L (32.0-37.0) g/dL RDW 17.2 H (11.5-14.5) % Immature Gran # 0.16 H (0.00-0.04) 10*3/uL Neutrophils # 8.24 H (1.80-7.70) 10*3/uL Chloride 110 H (98-107) mmol/L Carbon Dioxide 21 L (22-30) mmol/L BUN <2 L (7-17) mg/dL Calcium 8.0 L (8.4-10.2) mg/dL C-Reactive Protein 7.6 H (<1.0) mg/dL Total Protein 5.0 L (6.3-8.2) g/dL Albumin 2.9 L (3.5-5.0) g/dL Microbiology - Last 24 Hours (Table) 12/22/24 11:29 Blood Culture - Preliminary Blood 12/23/24 13:22 Genital Culture - Preliminary Cervix Presumptive Staph aureus Assessment and Plan Assessment: 39 of female with C. difficile colitis and resolving acute cholecystitis Okay for discharge White count trending down to normal, no fevers, nontachycardic Follow-up outpatient for elective robotic cholecystectomy if patient continues to be hospitalized we can move forward with surgery sometime next week after infection clears Time with Patient: Less than 30
[2024-12-26 14:35] VITALS: BP 132/85; RESP 16; TEMP 98.8
--- NOTE | 2024-12-26 15:34 | P.PN ---
Subjective Progress Note Date: 12/26/24 Principal diagnosis: Reason for follow-up is cholangitis/C. difficile colitis Patient is a 39-year-old female past medical history pertinent for hypertension SVT presenting to the hospital 3 days ago for abdominal pain which apparently started the morning of presentation the hospital pain has been mostly in the epigastric area sudden sharp pain patient did have a abnormal ultrasound as well as HIDA scan concerning for cystic duct obstruction subsequently well-appearing diarrhea stool for C. difficile positive follow-up with this consultation. On today's evaluation that is 12/27/2023, patient did have a temperature of 98.7 F this morning and denies having any chills, patient is on room air and breathing comfortably no chest pain or cough, the patient did not have any nausea vomiting did have a resolution abdominal pain and diarrhea has slowed out feeling better wants to go home. Patient white count is noted 0.45, creatinine 0.52 visual culture with MSSA Objective - Vital Signs Vital signs: Vital Signs Temp 98.7 F 12/26/24 07:29 Pulse 88 12/26/24 09:32 Resp 17 12/26/24 07:29 BP 144/96 12/26/24 07:29 Pulse Ox 95 12/26/24 07:29 FiO2 Intake & Output 12/25/24 12/26/24 12/26/24 18:59 06:59 18:59 Intake Total 830 444 Balance 830 444 Intake: Oral 830 444 Other: Voiding Method Toilet Toilet # Voids 1 2 # Bowel Movements 1 - Exam GENERAL DESCRIPTION: Middle-age female up in a chair in no distress RESPIRATORY SYSTEM: Unlabored breathing , decreased breath sounds at bases HEART: S1 S2 regular rate and rhythm , ABDOMEN: Soft , no tenderness EXTREMITIES: No edema feet - Labs CBC & Chem 7: 12/26/24 07:44 12/26/24 07:44 Labs: Abnormal Lab Results - Last 24 Hours (Table) 12/26/24 12/26/24 Range/Units 07:44 07:44 WBC 10.45 H (4.50-10.00) 10*3/uL RBC 3.66 L (4.10-5.20) 10*6/uL Hgb 7.6 L (12.0-15.0) g/dL Hct 26.2 L (37.2-46.3) % MCV 71.6 L (80.0-97.0) fL MCH 20.8 L (27.0-32.0) pg MCHC 29.0 L (32.0-37.0) g/dL RDW 17.2 H (11.5-14.5) % Immature Gran # 0.16 H (0.00-0.04) 10*3/uL Neutrophils # 8.24 H (1.80-7.70) 10*3/uL Chloride 110 H (98-107) mmol/L Carbon Dioxide 21 L (22-30) mmol/L BUN <2 L (7-17) mg/dL Calcium 8.0 L (8.4-10.2) mg/dL C-Reactive Protein 7.6 H (<1.0) mg/dL Total Protein 5.0 L (6.3-8.2) g/dL Albumin 2.9 L (3.5-5.0) g/dL Microbiology - Last 24 Hours (Table) 12/22/24 11:29 Blood Culture - Preliminary Blood 12/23/24 13:22 Genital Culture - Preliminary Cervix Presumptive Staph aureus Assessment and Plan (1) Possible exposure to STD Current Visit: Yes Status: Acute Code(s): Z20.2 - CONTACT W AND EXPOSURE TO INFECT W A SEXL MODE OF TRANSMISS SNOMED Code(s): 805115484 (2) Sepsis Current Visit: Yes Status: Acute Code(s): A41.9 - SEPSIS, UNSPECIFIED ORGANISM SNOMED Code(s): 41351562 (3) Cholangitis Current Visit: Yes Status: Acute Code(s): K83.09 - OTHER CHOLANGITIS SNOMED Code(s): 49128806 Plan: 1patient with initial presentation to the hospital with sepsis in this patient who did have fever tachycardia elevated white count medically for SIRS source was likely ascending cholangitis in this patient who possibly has prostate gallstone as there is evidence of dilated CBD and did have abnormal HIDA scan likely organism recovered with the entirety gram-negative 2-patient also have complication as she developed diarrhea stool for C. difficile above positive that will complicate her overall care 3-patient also have unprotected sexual intercourse chlamydia and GC has been negative endocervical culture growing Staph aureus possible colonization as the patient currently denies having any vaginal drainage 4-patient need to be on a short course of antibiotic for the cholangitis hopefully will undergo laparoscopic cholecystectomy soon as prolonged antibiotic exposure will put her at high risk for worsening of her C. difficile colitis 5-patient feeling better wants to go home we will recommend a 5-day course of oral Ceftin and a 10-day course of oral vancomycin on discharge and instructed to follow-up with the surgeon soon and if develops any worsening abdominal pain fever or diarrhea she need to come back to the hospital, prescription sent to the pharmacy Dictation was produced using wripl dictation software. please excuse any grammatical, word or spelling errors. Time with Patient: Less than 30
--- NOTE | 2024-12-27 10:54 | DS ---
DISCHARGE SUMMARY FINAL DIAGNOSES: 1. Abdominal pain and nausea, possibly secondary to cholelithiasis. 2. History of deep vein thrombosis. 3. Fevers with possible pelvic inflammatory disease. 4. Clostridium difficile colitis. 5. Anemia. Rule out gastrointestinal bleed. DISCHARGE: The patient will be discharged in stable condition and guarded prognosis. The patient is extremely keen on going home. I recommend a close followup in the outpatient setting. HISTORY OF PRESENT ILLNESS: This 39-year-old woman was admitted with multiple complex medical issues, which were treated symptomatically. The patient had genital culture pending for Staph aureus. Dr. Lazaro saw the patient and cleared the patient for discharge. Hemoglobin is 7.6, symptomatic. Recommend close followup with primary physician in the outpatient setting and also recommend endoscopic workup and other evaluation per Dr. Gramajo as an outpatient also. PERTINENT LABORATORY DATA: Hemoglobin is, as mentioned earlier, 7.6 and the previous hemoglobin on 09/30/2023 was 11.2. PHYSICAL EXAMINATION: VITAL SIGNS: Stable. CARDIOVASCULAR: S1 and S2. ABDOMEN: Soft. NERVOUS SYSTEMS: No focal deficit. CONDITION: The patient discharge in stable condition. DIET: Cardiac. ACTIVITY: Limited. FOLLOWUP: 1. No NSAIDs. 2. Follow up with the primary physician in 1 to 2 days. CBC and BMP follow with Dr. Gramajo is recommended. DISCHARGE MEDICATIONS: 1. Ceftin 500 mg p.o. b.i.d. for 5 days. 2. Vancomycin 250 mg q.6 hours. 3. Xanax 0.5 mg t.i.d. p.r.n. 4. Prinivil 10 mg p.o. daily. 5. Prozac 20 mg p.o. daily. 6. Protonix 40 mg p.o. daily. MMODL / IJN: [id number] / MTDD
[2024-12-28 13:44] LABS: HIV 2 AB Non-Reactive (Non-Reactive); HIV AB P24 Non-Reactive (Non-Reactive); HIV P24 AG Non-Reactive (Non-Reactive)
== END 2024-12-26 15:28 | disposition home or self-care (01) | DRG 872 ==
LOC: EC 09:13 → 4SSUR 17:46 → 5NMEDONC 20:33 → 6NMEDSUR 20:54
PROVIDERS: ADMIT Hospitalist; ATTEND Hospitalist
DX: A41.9 Sepsis, unspecified organism (principal); E87.20 Acidosis, unspecified; A04.72 Enterocolitis due to Clostridium difficile, not specified as recurrent; K80.62 Calculus of gallbladder and bile duct with acute cholecystitis without obstruction; K83.09 Other cholangitis; I10 Essential (primary) hypertension; D64.9 Anemia, unspecified; I47.10 Supraventricular tachycardia, unspecified; Z53.09 Procedure and treatment not carried out because of other contraindication; F17.200 Nicotine dependence, unspecified, uncomplicated; Z20.2 Contact with and (suspected) exposure to infections with a predominantly sexual mode of transmission; Z79.899 Other long term (current) drug therapy; Z86.718 Personal history of other venous thrombosis and embolism
CPT/HCPCS: 36415; 71045; 74177; 76705; 76830; 78226; 80048; 80053; 80076; 81003; 81025; 82150; 83605; 83690; 84132; 85025; 85610; 86140; 87040; 87070; 87077; 87186; 87324; 87390; 87491; 87591; 87636; 93005; 93976; 96361; 96365; 96366; 96375; 96376; 99285

== ENCOUNTER 2024-12-27 21:25 | Emergency (ER) | payer BC ==
[2024-12-27] MEDS: LACTATED RINGERS 1,000 ML IV ONE (23:00)
[2024-12-27 23:06] LABS: Basophils # (A) 0.11 10*3/uL (0.00-0.10); Basophils % (A) 0.7 %; Eosinophils # (A) 0.12 10*3/uL (0.04-0.35); Eosinophils % (A) 0.8 %; HCT 30.1 % (37.2-46.3); Lymphocytes # (A) 1.53 10*3/uL (0.90-5.00); Lymphocytes % (A) 9.8 %; MCH 21.4 pg (27.0-32.0); MCHC 30.9 g/dL (32.0-37.0); MCV 69.2 fL (80.0-97.0); Mean Platelet Volume 10.2 fL (9.5-12.2); Monocytes # (A) 1.15 10*3/uL (0.20-1.00); Monocytes % (A) 7.4 %; Neutrophils # (A) 11.99 10*3/uL (1.80-7.70); Neutrophils % (A) 76.6 %; Platelet Count 380 10*3/uL (140-440); RBC 4.35 10*6/uL (4.10-5.20); WBC 15.64 10*3/uL (4.50-10.00)
[2024-12-27 23:07] LABS: Appearance,Urine Clear (Clear); Bilirubin,Urine Negative (Negative); Blood,Urine Negative (Negative); Color,Urine Colorless; Glucose,Urine (UA) Negative (Negative); Ketones,Urine Negative (Negative); Leukocyte Esterase,Urine Negative (Negative); Nitrite,Urine Negative (Negative); PH, Urine 6.5 (5.0-8.0); Protein,Urine Negative (Negative); Urobilinogen,Urine <2.0 mg/dL (<2.0)
[2024-12-27 23:24] LABS: HGB 9.3 g/dL (12.0-15.0)
[2024-12-27 23:31] LABS: ALT 18 U/L (4-34); AST 35 U/L (14-36); African American GFR (CKD) >90 (>60 ml/min/1.73 sqM); Albumin 3.4 g/dL (3.5-5.0); Alkaline Phosphatase 59 U/L (38-126); Anion Gap 7 mmol/L; Blood Urea Nitrogen 3 mg/dL (7-17); Calcium 8.8 mg/dL (8.4-10.2); Carbon Dioxide 24 mmol/L (22-30); Chloride 104 mmol/L (98-107); Glucose 112 mg/dL (74-99); Lipase 624 U/L (23-300); Non-African American GFR(CKD) >90 (>60 ml/min/1.73 sqM); Potassium 3.8 mmol/L (3.5-5.1); Sodium 135 mmol/L (137-145); Total Bilirubin 0.4 mg/dL (0.2-1.3); Total Protein 5.9 g/dL (6.3-8.2)
--- NOTE | 2024-12-27 23:51 | XR ---
EXAMINATION TYPE: XR KUB DATE OF EXAM: 12/27/2024 COMPARISON: CT abdomen pelvis 12/22/2024 HISTORY: Abdominal pain TECHNIQUE: Upright supine KUB image of the abdomen is obtained FINDINGS: Small bowel demonstrates no evidence for dilatation or air fluid levels. Gas and fecal material is seen in non-distended colon. No convincing evidence for pneumoperitoneum. There is a 9 mm gallstone within the right upper quadrant corresponding to recent CT. The lung bases are clear. The osseous structures are intact. IMPRESSION: 1. Overall nonobstructive bowel gas pattern. 2. Cholelithiasis. [facility], , 12/27/2024 11:48 PM
[2024-12-28] MEDS: LACTOBACILLUS ACIDOPHILUS/PECT 1 EACH CAPSULE PO STA (00:56)
--- NOTE | 2024-12-28 01:01 | ED ---
Abdominal Pain HPI - General Chief Complaint: Abdominal Pain Stated Complaint: Abd Pain Time Seen by Provider: 12/27/24 21:30 Source: patient Mode of arrival: ambulatory Limitations: no limitations - History of Present Illness Initial Comments: 39-year-old female presents emergency department reporting abdominal pain. Patient was just discharged from the hospital yesterday. She was hospitalized for possible pelvic inflammatory disease as well as cholelithiasis. Patient states that since she has been home she has not had a bowel movement. Patient was on antibiotics for left pelvic x-ray in the [facility] [facility] and after a few days she developed significant diarrhea. She was diagnosed with C. difficile and discharged home on Vanco. States that she has not had a bowel movement and is concerned that she is now constipated. She denies any upper abdominal pain. No nausea or vomiting. No other alleviating, precipitating or modifying factors - Related Data Home Medications Medication Instructions Recorded Confirmed ALPRAZolam [Xanax] 0.25 mg PO DAILY PRN 12/22/24 12/22/24 FLUoxetine HCL [PROzac] 20 mg PO DAILY 12/22/24 12/22/24 Previous Rx's Medication Instructions Recorded lisinopriL [Prinivil] 10 mg PO DAILY #30 tab 08/12/21 Pantoprazole Sodium [Protonix] 40 mg PO DAILY #30 tab 12/26/24 Vancomycin HCl [Vancocin HCl] 250 mg PO Q6HR #40 cap 12/26/24 cefuroxime axetiL [Ceftin] 500 mg PO BID #10 tab 12/26/24 L.acidoph,Paracasei, B.lactis 1 each PO DAILY #30 capsule 12/28/24 [Probiotic] Allergies Allergy/AdvReac Type Severity Reaction Status Date / Time No Known Allergies Allergy Verified 12/27/24 21:31 Review of Systems ROS Statement: Those systems with pertinent positive or pertinent negative responses have been documented in the HPI. ROS Other: All systems not noted in ROS Statement are negative. Past Medical History Past Medical History: Hypertension, Supraventricular Tachycardia (SVT) Additional Past Medical History / Comment(s): tachycardia, svt History of Any Multi-Drug Resistant Organisms: None Reported Past Surgical History: Section Additional Past Surgical History / Comment(s): Debridement of right ankle and foot wounds Past Anesthesia/Blood Transfusion Reactions: No Reported Reaction Past Psychological History: No Psychological Hx Reported Smoking Status: Never smoker Past Alcohol Use History: Occasional Past Drug Use History: None Reported - Past Family History Father History Unknown: Yes Mother Family Medical History: COPD, Rheumatoid Arthritis (RA) General Exam Limitations: no limitations General appearance: alert, in no apparent distress Head exam: Present: atraumatic, normocephalic, normal inspection Eye exam: Present: normal appearance, PERRL, EOMI. Absent: scleral icterus, conjunctival injection, periorbital swelling ENT exam: Present: normal exam, mucous membranes moist Neck exam: Present: normal inspection. Absent: tenderness, meningismus, lymphadenopathy Respiratory exam: Present: normal lung sounds bilaterally. Absent: respiratory distress, wheezes, rales, rhonchi, stridor Cardiovascular Exam: Present: regular rate, normal rhythm, normal heart sounds. Absent: systolic murmur, diastolic murmur, rubs, gallop, clicks GI/Abdominal exam: Present: soft, tenderness (Suprapubic), normal bowel sounds. Absent: guarding, rebound, rigid Extremities exam: Present: normal inspection, full ROM, normal capillary refill. Absent: tenderness, pedal edema, joint swelling, calf tenderness Back exam: Present: normal inspection Neurological exam: Present: alert, oriented X3, CN II-XII intact Psychiatric exam: Present: normal affect, normal mood Skin exam: Present: warm, dry, intact, normal color. Absent: rash Course Vital Signs 12/27/24 12/28/24 21:28 01:19 Temperature 98.2 F 98.3 F Pulse Rate 107 H 91 Respiratory 18 17 Rate Blood Pressure 156/99 155/105 O2 Sat by Pulse 100 99 Oximetry Medical Decision Making - Medical Decision Making Was pt. sent in by a medical professional or institution (, PA, LAP MACHINE OPERATOR, urgent care, hospital, or shelter...) When possible be specific @ -No Did you speak to anyone other than the patient for history (EMS, parent, family, police, friend...)? What history was obtained from this source @ -No Did you review nursing and triage notes (agree or disagree)? Why? @ -I reviewed and agree with nursing and triage notes Were old charts reviewed (outside hosp., previous admission, EMS record, old EKG, old radiological studies, urgent care reports/EKG's, shelter records)? Report findings @ -No old charts were reviewed Differential Diagnosis (chest pain, altered mental status, abdominal pain women, abdominal pain men, vaginal bleeding, weakness, fever, dyspnea, syncope, head ache, dizziness, GI bleed, back pain, seizure, CVA, palpatations, mental health, musculoskeletal)? @ -Differential Abdominal Pain Women: Appendicitis, Cholecystitis, diverticulosis, ischemic bowel, pancreatitis, hepatitis, UTI, gastroenteritis, AAA, incarcerated hernia, bowel obstruction, constipation, inflammatory bowel, hepatitis, peptic ulcer disease, splenic infarction, perforated viscus, vulvitis, ovarian torsion, PID, kidney stone, placenta abruption, this is not meant to be an all-inclusive list EKG interpreted by me (3pts min.). @ -Not done X-rays interpreted by me (1pt min.). @ -Yes which demonstrates no obstructive signs CT interpreted by me (1pt min.). @ -None done U/S interpreted by me (1pt. min.). @ -None done What testing was considered but not performed or refused? (CT, X-rays, U/S, labs)? Why? @ -None What meds were considered but not given or refused? Why? @ -None Did you discuss the management of the patient with other professionals (professionals i.e. , PA, LAP MACHINE OPERATOR, lab, RT, psych nurse, manager social services, boat hoist operator helper, teacher, unemployment insurance hearing officer, upper caser)? Give summary @ -No Was smoking cessation discussed for >3mins.? @ -No Was critical care preformed (if so, how long)? @ -No Were there social determinants of health that impacted care today? How? (Homelessness, low income, unemployed, alcoholism, drug addiction, transportation, low edu. Level, literacy, decrease access to med. care, assisted, rehab)? @ -No Was there de-escalation of care discussed even if they declined (Discuss DNR or withdrawal of care, Hospice)? DNR status @ -No What co-morbidities impacted this encounter? (DM, HTN, Smoking, COPD, CAD, Cancer, CVA, ARF, Chemo, Hep., AIDS, mental health diagnosis, sleep apnea, morbid obesity)? @ -None Was patient admitted / discharged? Hospital course, mention meds given and route, prescriptions, significant lab abnormalities, going to OR and other pertinent info. @ -Upon arrival patient seen and evaluated in hallway 19. Thorough history and physical exam was performed. IV access was established and laboratory studies are conducted. Patient does have an elevation in white blood cell count to 15. KUB demonstrates no significant stool burden. I did discuss the case with the patient. Did offer overnight observation due to worsening white count however patient would like to go home at this time. She is given a prescription for CBC which she is to have in the outpatient setting. Continue taking her vancomycin. I did prescribe a probiotic. Patient will return to the emergency room for any new or worsening symptoms. She was agreeable and discharged in stable condition Undiagnosed new problem with uncertain prognosis? @ -No Drug Therapy requiring intensive monitoring for toxicity (Heparin, Nitro, Insu shon, Cardizem)? @ -No Were any procedures done? @ -No Diagnosis/symptom? @ -Acute abdominal pain, recent diagnosis of C. difficile, acute leukocytosis Acute, or Chronic, or Acute on Chronic? @ -Acute Uncomplicated (without systemic symptoms) or Complicated (systemic symptoms)? @ -Complicated Side effects of treatment? @ -No Exacerbation, Progression, or Severe Exacerbation? @ -No Poses a threat to life or bodily function? How? (Chest pain, USA, OR, pneumonia, PE, COPD, DKA, ARF, appy, cholecystitis, CVA, Diverticulitis, Homicidal, Suicidal, threat to staff... and all critical care pts) @ -No - Lab Data Result diagrams: 12/27/24 22:53 12/27/24 22:53 Lab Results 12/27/24 12/27/24 12/27/24 Range/Units 22:53 22:53 22:53 WBC 15.64 H (4.50-10.00) 10*3/uL RBC 4.35 (4.10-5.20) 10*6/uL Hgb 9.3 L D (12.0-15.0) g/dL Hct 30.1 L (37.2-46.3) % MCV 69.2 L (80.0-97.0) fL MCH 21.4 L (27.0-32.0) pg MCHC 30.9 L (32.0-37.0) g/dL Plt Count 380 (140-440) 10*3/uL MPV 10.2 (9.5-12.2) fL Immature Gran % (Auto) 4.7 % Neutrophils % 76.6 % Lymphocytes % 9.8 % Monocytes % 7.4 % Eosinophils % 0.8 % Basophils % 0.7 % Immature Gran # 0.74 H (0.00-0.04) 10*3/uL Neutrophils # 11.99 H (1.80-7.70) 10*3/uL Lymphocytes # 1.53 (0.90-5.00) 10*3/uL Monocytes # 1.15 H (0.20-1.00) 10*3/uL Eosinophils # 0.12 (0.04-0.35) 10*3/uL Basophils # 0.11 H (0.00-0.10) 10*3/uL Sodium 135 L (137-145) mmol/L Potassium 3.8 (3.5-5.1) mmol/L Chloride 104 (98-107) mmol/L Carbon Dioxide 24 (22-30) mmol/L Anion Gap 7 mmol/L BUN 3 L (7-17) mg/dL Creatinine 0.54 (0.52-1.04) mg/dL Est GFR (CKD-EPI)AfAm >90 (>60 ml/min/1.73 sqM) Est GFR (CKD-EPI)NonAf >90 (>60 ml/min/1.73 sqM) Glucose 112 H (74-99) mg/dL Plasma Lactic Acid Ace 1.1 (0.7-2.0) mmol/L Calcium 8.8 (8.4-10.2) mg/dL Total Bilirubin 0.4 (0.2-1.3) mg/dL AST 35 (14-36) U/L ALT 18 (4-34) U/L Alkaline Phosphatase 59 (38-126) U/L Total Protein 5.9 L (6.3-8.2) g/dL Albumin 3.4 L (3.5-5.0) g/dL Lipase 624 H (23-300) U/L Urine Color Urine Appearance (Clear) Urine pH (5.0-8.0) Ur Specific [place] (1.001-1.035) Urine Protein (Negative) Urine Glucose (UA) (Negative) Urine Ketones (Negative) Urine Blood (Negative) Urine Nitrite (Negative) Urine Bilirubin (Negative) Urine Urobilinogen (<2.0) mg/dL Ur Leukocyte Esterase (Negative) 12/27/24 Range/Units 22:54 WBC (4.50-10.00) 10*3/uL RBC (4.10-5.20) 10*6/uL Hgb (12.0-15.0) g/dL Hct (37.2-46.3) % MCV (80.0-97.0) fL MCH (27.0-32.0) pg MCHC (32.0-37.0) g/dL Plt Count (140-440) 10*3/uL MPV (9.5-12.2) fL Immature Gran % (Auto) % Neutrophils % % Lymphocytes % % Monocytes % % Eosinophils % % Basophils % % Immature Gran # (0.00-0.04) 10*3/uL Neutrophils # (1.80-7.70) 10*3/uL Lymphocytes # (0.90-5.00) 10*3/uL Monocytes # (0.20-1.00) 10*3/uL Eosinophils # (0.04-0.35) 10*3/uL Basophils # (0.00-0.10) 10*3/uL Sodium (137-145) mmol/L Potassium (3.5-5.1) mmol/L Chloride (98-107) mmol/L Carbon Dioxide (22-30) mmol/L Anion Gap mmol/L BUN (7-17) mg/dL Creatinine (0.52-1.04) mg/dL Est GFR (CKD-EPI)AfAm (>60 ml/min/1.73 sqM) Est GFR (CKD-EPI)NonAf (>60 ml/min/1.73 sqM) Glucose (74-99) mg/dL Plasma Lactic Acid Ace (0.7-2.0) mmol/L Calcium (8.4-10.2) mg/dL Total Bilirubin (0.2-1.3) mg/dL AST (14-36) U/L ALT (4-34) U/L Alkaline Phosphatase (38-126) U/L Total Protein (6.3-8.2) g/dL Albumin (3.5-5.0) g/dL Lipase (23-300) U/L Urine Color Colorless Urine Appearance Clear (Clear) Urine pH 6.5 (5.0-8.0) Ur Specific [place] 1.000 L (1.001-1.035) Urine Protein Negative (Negative) Urine Glucose (UA) Negative (Negative) Urine Ketones Negative (Negative) Urine Blood Negative (Negative) Urine Nitrite Negative (Negative) Urine Bilirubin Negative (Negative) Urine Urobilinogen <2.0 (<2.0) mg/dL Ur Leukocyte Esterase Negative (Negative) Disposition Clinical Impression: Abdominal pain, Pelvic pain Disposition: HOME SELF-CARE Condition: Stable Instructions (If sedation given, give patient instructions): Abdominal Pain (ED) Additional Instructions: Your white blood cell count went from 10.4 yesterday to 15.6 today. I will want you to come back to the hospital on Saturday to get your white blood cell count redrawn. The outpatient lab is open 7-430 pm. The results will be put in your MyChart. If you have fevers, increasing pain, chills you need to return to the emergency department. Continue taking the antibiotics as they are instructed. I also recommend Benefiber daily and your probiotic Prescriptions: L.acidoph,Paracasei, B.lactis [Probiotic] 1 each PO DAILY #30 capsule Is patient prescribed a controlled substance at d/c from ED?: No Referrals: Thomas Walker MD [Primary Care Provider] - 1-2 days Tomasz Quiñonez DO [Doctor of Osteopathic Medicine] - 1-2 days Time of Disposition: 01:02
[2024-12-28 01:29] VITALS: BP 155/105; PULSE 91; RESP 17; TEMP 98.3
== END 2024-12-28 01:29 | disposition home or self-care (01) ==
LOC: EC 21:25
DX: K80.20 Calculus of gallbladder without cholecystitis without obstruction (principal)
CPT/HCPCS: 36415; 74018; 80053; 81003; 83605; 83690; 85025; 96360; 99284

== ENCOUNTER → 2024-12-29 | Outpatient (CLI) | payer BC ==
[2024-12-29 15:02] LABS: HCT 29.7 % (37.2-46.3); HGB 8.4 g/dL (12.0-15.0); MCH 20.5 pg (27.0-32.0); MCHC 28.3 g/dL (32.0-37.0); MCV 72.4 FL (80.0-97.0); NRBC Per 100 WBC 0.06 X 10*3/uL (0.00-0.01); Platelet Count 429 X 10*3/uL (140-440); RBC 4.10 X 10*6/uL (4.10-5.20); RDW 17.4 % (11.5-14.5); WBC 9.71 X 10*3/uL (4.50-10.00)
[2024-12-29 15:34] LABS: Neutrophils # (M) 8.35 X 10*3/uL (1.80-7.70); Neutrophils % (M) 86 %
[2024-12-29 15:35] LABS: Basophils # (M) 0.19 X 10*3/uL (0.00-0.10); Eosinophils # (M) 0.10 X 10*3/uL (0.04-0.35); Lymphocytes # (M) 0.68 X 10*3/uL (0.90-5.00); Monocytes # (M) 0.29 X 10*3/uL (0.20-1.00)
== END | disposition home or self-care (01) ==
LOC: LABWHC1 10:59
PROVIDERS: ATTEND Emergency Medicine
DX: D72.819 Decreased white blood cell count, unspecified (principal)
CPT/HCPCS: 36415; 85025

== ENCOUNTER 2025-01-05 11:06 | Day surgery (SDC) | payer BC ==
[~2025-01-05 11:06] MED LIST: INDOCYANINE GREEN 25 MG VIAL IV PRN; MIDAZOLAM 2 MG/2 ML VIAL IV PRN; SCOPOLAMINE 1 MG/72 HR PATCH TRANSDERM ONE
[2025-01-05] MEDS: ONDANSETRON 4 MG/2 ML VIAL IVP ONE (11:50)
[2025-01-05] MEDS: LACTATED RINGERS 1,000 ML IV SCH (11:50)
[2025-01-05] MEDS: DEXAMETHASONE SOD PHOSPHATE 4 MG/ML 1 ML VIAL IV ONE (11:50)
[2025-01-05] MEDS: HEPARIN SODIUM,PORCINE 5,000 UNIT/ML 1 ML VIAL SQ PRN (11:53)
[2025-01-05 11:54] LABS: HCT 29.7 % (37.2-46.3); HGB 8.9 g/dL (12.0-15.0); MCH 20.9 pg (27.0-32.0); MCHC 30.0 g/dL (32.0-37.0); MCV 69.9 fL (80.0-97.0); Platelet Count 624 10*3/uL (140-440); RBC 4.25 10*6/uL (4.10-5.20); RDW 17.1 % (11.5-14.5); WBC 5.88 10*3/uL (4.50-10.00)
[2025-01-05] MEDS: IV FLUID CONTINUATION 1,000 ML IV ONE ×2 (12:02→14:47)
[2025-01-05] MEDS: LIDOCAINE 1%-EPI 1:100,000 20 ML VIAL SQ ONE ×3 (12:16→12:51)
[2025-01-05] MEDS ORDERED: INDOCYANINE GREEN 25 MG VIAL IV PRN (12:22)
[2025-01-05] MEDS ORDERED: SUCCINYLCHOLINE CHLORIDE 200 MG/10 ML VIAL IV ONE (12:28)
[2025-01-05] MEDS ORDERED: HYDROmorphone (PF) 1 MG/ML ONE (12:28)
[2025-01-05] MEDS ORDERED: ROCURONIUM 10 MG/ML (5 ML VIAL) IV ONE (12:28)
[2025-01-05] MEDS ORDERED: fentaNYL (PF) 50 MCG/ML 2 ML AMP ONE (12:28)
[2025-01-05] MEDS ORDERED: NEOSTIGMINE 1 MG/ML 10 ML VIAL ONE (12:28)
[2025-01-05] MEDS ORDERED: PROPOFOL 10 MG/ML 20 ML VIAL IV ONE (12:28)
[2025-01-05] MEDS ORDERED: GLYCOPYRROLATE 0.2 MG/ML 2 ML VIAL ONE (12:28)
[2025-01-05] MEDS ORDERED: LIDOCAINE 1% INJ 10MG/ML (20 ML MDV) ONE (12:28)
[2025-01-05] MEDS ORDERED: MIDAZOLAM 2 MG/2 ML VIAL ONE (12:28)
[2025-01-05 13:38] VITALS: TEMP 98
[2025-01-05] MEDS: HYDROmorphone 0.5 MG/0.5 ML SYRINGE IVP PRN (13:41)
[2025-01-05 14:32] VITALS: RESP 16
--- NOTE | 2025-01-05 15:18 | P.OP ---
Date of Procedure: 01/05/25 Preoperative Diagnosis: Chronic cholecystitis Postoperative Diagnosis: Chronic cholecystitis Procedure(s) Performed: Robotic cholecystectomy Anesthesia: FREDRICK Surgeon: Arabella Gonzalez Pathology: other (Gallbladder) Condition: stable Disposition: same day Indications for Procedure: 39-year-old female presented to the hospital with complaints of abdominal pain. She was found to have cholecystitis. Surgery was initially planned during her inpatient stay, however she developed C. difficile colitis and was treated for this infection. She now presents for cholecystectomy. Risks, benefits and alternatives were provided to the patient. All questions answered prior to attending the operating suite. Operative Findings: Distended gallbladder Description of Procedure: Patient was brought to the operating suite and placed in supine position on the operating table. Sedation was provided by anesthesia and the patient underwent endotracheal intubation. The patient was then prepped and draped in regular sterile fashion. An infraumbilical incision was made and dissection was carried to the fascia. The fascia was incised and an 8 mm trocar was placed. Pneumoperitoneum was achieved. The patient was then placed in appropriate position. 2 additional 8 mm trocars were placed in the right upper quadrant and 1 in the left upper quadrant. Robot was then docked. The gallbladder was then grasped and retracted superiorly and laterally. The gallbladder appeared distended. Dissection was carried along the infundibulum towards the cystic duct and the cystic duct was skeletonized. The cystic artery was similarly skeletonized and critical view was obtained. ICG was used to confirm anatomy. 2 clips were placed proximally on the cystic duct and 1 was placed distally and the cystic duct was ligated. Similarly, 2 clips were placed proximally on the cystic artery and 1 was placed distally and the cystic artery was ligated. Cautery was then used to dissect the gallbladder off of the gallbladder fossa. The gallbladder was then placed in an Endo Catch bag and removed from the abdomen from the infraumbilical incision site. Irrigation was placed and suctioned in the right upper quadrant. Hemostasis was noted to be maintained. No bile leakage was noted. The infraumbilical fascial incision was closed under direct visualization using an 0 Vicryl suture and Krunal-Iglesia device. Pneumoperitoneum was released. All ports removed from the abdomen. All port sites were closed with 4-0 Vicryl subcuticular suture. Sterile dressing was applied. The patient was taken to postanesthesia care unit in stable condition. Sponge and instrument count correct x 2.
[2025-01-05] MEDS: HYDROcodone/APAP 5-325MG 1 EACH TAB PO STA (15:29)
[2025-01-05] MEDS: droPERidol 2.5 MG/ML VIAL IVP ONE (16:48)
[2025-01-05 17:33] VITALS: BP 130/82; PULSE 64
== END 2025-01-05 17:44 | disposition home or self-care (01) ==
LOC: OR 11:06
PROVIDERS: ATTEND Surgery
DX: K80.10 Calculus of gallbladder with chronic cholecystitis without obstruction (principal); I10 Essential (primary) hypertension; I34.1 Nonrheumatic mitral (valve) prolapse; Z79.899 Other long term (current) drug therapy
CPT/HCPCS: 47562; S2900; 81025; 85027; 88304